=== PATIENT | male | born 1955 | race Caucasian/White ===

== ENCOUNTER 2019-07-26 01:18 | Inpatient (IN) | payer OTHER ==
[2019-07-26] MEDS ORDERED: Ondansetron 4 MG/2 ML SDV IVPUSH ONE (03:17)
[2019-07-26] MEDS ORDERED: HYDROmorphone 1 MG/ML Syringe IVPUSH ONE ×2 (03:17→05:48)
--- NOTE | 2019-07-26 03:22 | EDM.PDOC ---
ED HPI GENERAL MEDICAL PROBLEM - General Chief Complaint: Abdominal Pain Stated Complaint: STOMACH PAIN VOMITING Time Seen by Provider: 07/26/19 02:35 Source of Information: Reports: Patient, Family () History Limitations: Reports: No Limitations - History of Present Illness INITIAL COMMENTS - FREE TEXT/NARRATIVE: Mr. Carranza is a pleasant 63-year-old man with no chronic medical problems, but who acknowledges that he has not had a general physical exam for decades, states that he has been suffering from epigastric abdominal pain, sharp in character, on off for the past month. His tells me that he has vomited daily. Typically, when he has the pain, it only lasts for a few moments, and is only once per day, however, fouzia's episode began around 21:00, is much more severe, and has persisted. It is made worse with movement. He feels constipated , and states that his last bowel movement was on 07/24/19. He reports a 30 pound unintentional weight loss over the past 2 months. No recent fever, chills, cough, dyspnea, chest pain, palpitations, diarrhea, bloody bowel movements or black bowel movements, joint aches, headaches, or rashes. The patient states that he was seen at the walk-in clinic about 2 weeks ago. He states that no tests were done, but they felt that he was suffering from GERD, therefore recommended an [id number] antacid, whose name he does not recall. The patient states that he took the antacid, but he may not have been entirely compliant with it. He was then seen a second time in the walk-in clinic this past 07/23/19. He states that again no tests were done, and that he was again told that he likely had GERD, and a different antacid was recommended. He states that he took a single dose of it yesterday morning, , 07/25/19. The patient last ate around 18:00 last evening. The patient does not have a PCP, although he is planning to establish Dr. Emiliano Smith as a PCP. He has not received an influenza vaccine this season, and declined an offer to receive one here today. Abdomen Pain Score (Numeric/FACES): 10 - Related Data Allergies Allergy/AdvReac Type Severity Reaction Status Date / Time No Known Allergies Allergy Verified 07/26/19 01:38 Home Meds: Home Meds . [No Known Home Meds] 07/26/19 [History] Past Medical History - Past Surgical History GI Surgical History: Reports: Hernia, Inguinal (bilateral) Social & Family History - Tobacco Use Smoking Status *Q: Current Every Day Smoker Years of Tobacco use: 47 Packs/Tins Daily: 0.5 Packs/Tins Daily Comment: Down from 1 ppd - Caffeine Use Caffeine Use: Reports: Soda - Alcohol Use Alcohol Use History: No - Recreational Drug Use Recreational Drug Use: No - Living Situation & Occupation Living situation: Reports: , with Spouse Occupation: Employed ([employer]) ED ROS GENERAL - Review of Systems Review Of Systems: Comprehensive ROS is negative, except as noted in HPI. ED EXAM, GI/ABD - Physical Exam Exam: See Below Exam Limited By: No Limitations General Appearance: Alert, WD/WN, Moderate Distress (moaning in pain) Eyes: Bilateral: Normal Appearance, EOMI Ears: Normal External Exam, Hearing Grossly Normal Nose: Normal Inspection Throat/Mouth: Normal Inspection, Normal Lips, Normal Voice, No Airway Compromise Head: Atraumatic, Normocephalic Neck: Normal Inspection, Full Range of Motion Respiratory/Chest: No Respiratory Distress, Lungs Clear, Normal Breath Sounds, No Accessory Muscle Use Cardiovascular: Normal Peripheral Pulses, No Edema, No Gallop, No JVD, No Murmur , No Rub, Tachycardia (regular) GI/Abdominal Exam: No Distention, No Abnormal Bruit, No Mass, Rigid, Tender ( entire upper abdomen, but nontender to the lower abdomen), Abnormal Bowel Sounds (diminished) (Male) Exam: Deferred Rectal (Males) Exam: Deferred Back Exam: Normal Inspection, Full Range of Motion. No: CVA Tenderness (L), CVA Tenderness (R) Extremities: Normal Inspection, Normal Range of Motion, No Pedal Edema, Normal Capillary Refill Neurological: Alert, Oriented, Normal Cognition, No Motor/Sensory Deficits Psychiatric: Normal Affect Skin Exam: Warm, Dry, Intact, Normal Color, No Rash EKG INTERPRETATION EKG Date: 07/26/19 Time: 04:39 Rhythm: NSR Rate (Beats/Min): 64 [place]: Normal P-Wave: Present QRS: RBBB (Early transition) ST-T: Normal QT: Prolonged (QTc 517 ms) Comparison: NA - No Prior EKG Course - Vital Signs Last Recorded V/S: Last Vital Signs Temp 36.4 C 07/26/19 01:35 Pulse 58 L 07/26/19 01:35 Resp 24 H 07/26/19 01:35 BP 137/109 H 07/26/19 01:35 Pulse Ox 94 L 07/26/19 01:35 - Orders/Labs/Meds Orders: Active Orders 24 hr Category Date Time Status EKG Documentation Completion [RC] STAT Care 07/26/19 04:31 Active Abdomen 1V Upright [CR] Stat Exams 07/26/19 03:17 Taken Pantoprazole [ProTONIX IV] 80 mg Med 07/26/19 04:45 Active Sodium Chloride 0.9% [Normal Saline] 100 ml IV Q10H Sodium Chloride 0.9% [Normal Saline] 1,000 ml Med 07/26/19 03:30 Active IV ASDIRECTED Medication Orders Sodium Chloride (Normal Saline) 1,000 mls @ 150 mls/hr IV ASDIRECTED [facility]AN Last Admin: 07/26/19 03:27 Dose: 150 mls/hr Pantoprazole Sodium 80 mg/ (Sodium Chloride) 100 mls @ 8 mls/hr IV Q10H [facility] Labs: Laboratory Tests 07/26/19 07/26/19 Range/Units 02:19 02:19 WBC 9.45 H (4.23-9.07) K/mm3 RBC 5.31 (4.63-6.08) M/mm3 Hgb 16.7 (13.7-17.5) gm/dl Hct 47.9 (40.1-51.0) % MCV 90.2 (79.0-92.2) fl MCH 31.5 (25.7-32.2) pg MCHC 34.9 (32.2-35.5) g/dl RDW Std Deviation 41.4 (35.1-43.9) fL Plt Count 297 (163-337) K/mm3 MPV 9.3 L (9.4-12.3) fl Neutrophils % (Manual) 69 H (40-60) % Band Neutrophils % 0 (0-10) % Lymphocytes % (Manual) 26 (20-40) % Atypical Lymphs % 0 % Monocytes % (Manual) 3 (2-10) % Eosinophils % (Manual) 1 (0.8-7.0) % Basophils % (Manual) 1 (0.2-1.2) Platelet Estimate Adequate RBC Morph Comment Normal Sodium 137 (136-145) mEq/L Potassium 3.2 L (3.5-5.1) mEq/L Chloride 99 (98-107) mEq/L Carbon Dioxide 29 (21-32) mEq/L Anion Gap 12.2 (5-15) BUN 12 (7-18) mg/dL Creatinine 1.0 (0.7-1.3) mg/dL Est Cr Clr Drug Dosing 73.65 mL/min Estimated GFR (MDRD) > 60 (>60) mL/min BUN/Creatinine Ratio 12.0 L (14-18) Glucose 204 H (80-115) mg/dL Calcium 9.6 (8.5-10.1) mg/dL Magnesium 4.0 H (1.8-2.4) mg/dl Total Bilirubin 0.9 (0.2-1.0) mg/dL AST 19 (15-37) U/L ALT 21 (16-63) U/L Alkaline Phosphatase 80 (46-116) U/L Total Protein 7.0 (6.4-8.2) g/dl Albumin 3.6 (3.4-5.0) g/dl Globulin 3.4 gm/dL Albumin/Globulin Ratio 1.1 (1-2) Lipase 111 (73-393) U/L Meds: Medications Generic Name Dose Route Start Last Admin Trade Name Freq PRN Reason Stop Dose Admin Sodium Chloride 1,000 mls @ 150 mls/hr 07/26/19 03:30 07/26/19 03:27 Normal Saline IV 150 mls/hr ASDIRECTED [facility]AN Administration Pantoprazole Sodium 80 mg/ 100 mls @ 8 mls/hr 07/26/19 04:45 Sodium Chloride IV Q10H [facility] Discontinued Medications Generic Name Dose Route Start Last Admin Trade Name Freq PRN Reason Stop Dose Admin Hydromorphone HCl 1 mg 07/26/19 03:17 07/26/19 03:25 Dilaudid IVPUSH 07/26/19 03:18 1 mg ONETIME ONE Administration Ondansetron HCl 4 mg 07/26/19 03:17 07/26/19 03:26 Zofran IVPUSH 02/07/20 03:18 4 mg ONETIME ONE Administration Pantoprazole Sodium 40 mg 07/26/19 04:31 Protonix Iv IVPUSH 07/26/19 04:32 ONETIME ONE - Re-Assessments/Exams Free Text/Narrative Re-Assessment/Exam: 07/26/19 03:18 The patient's presentation is very concerning for a perforated gastric ulcer versus pancreatitis; he reports one month of intermittent epigastric pain, much worse tonight, and on examination, he has peritoneal signs including diminished bowel sounds, rigidity, and upper abdominal tenderness. I have ordered a KUB to evaluate for free air; if there is free air, the patient will need to go directly to the OR. If there is not, I will order a CT scan of his abdomen and pelvis with oral and IV contrast. In the meantime, blood work has been ordered, along with IV fluid, Dilaudid, and Zofran. 07/26/19 04:26 The patient's KUB demonstrates free air. Otherwise nonspecific bowel gas pattern. Formal read per the Radiologist pending. His CBC is remarkable for a WBC count elevated at 9.45, but with 0% bandemia. His CMP is remarkable for a potassium depressed at 3.2, and a blood glucose elevated at 204, with remainder of CMP being unremarkable. His magnesium level is elevated at 4.0. His lipase is within normal limits at 111. 07/26/19 04:[address] Payan at 04:27. He recommended that I start IV Protonix, and obtain an ECG. No and about except this time. He will come in immediately. 07/26/19 04:43 Dr. Payan is here, and is evaluating the patient. 07/26/19 04:51 Dr. Payan is going to take the patient to the OR. Departure - Departure Time of Disposition: 04:52 Disposition: DC/Tfer to [facility] Condition: Fair Clinical Impression: Perforated abdominal viscus, Hyperglycemia - Discharge Information *PRESCRIPTION DRUG MONITORING PROGRAM REVIEWED*: Not Applicable *COPY OF PRESCRIPTION DRUG MONITORING REPORT IN PATIENT ELI: Not Applicable Referrals: Emiliano Smith MD [Primary Care Provider] - Alvino Payan MD [Physician] - Forms: ED Department Discharge Sepsis Event Note - Evaluation Sepsis Screening Result: No Definite Risk - Focused Exam Vital Signs: Vital Signs Temp Pulse Resp BP Pulse Ox 07/26/19 01:35 36.4 C 58 L 24 H 137/109 H 94 L Date Exam was Performed: 07/26/19 Time Exam was Performed: 04:46 - My Orders Last 24 Hours: My Active Orders 07/26/19 03:17 Abdomen 1V Upright [CR] Stat 07/26/19 03:30 Sodium Chloride 0.9% [Normal Saline] 1,000 ml IV ASDIRECTED 07/26/19 04:31 EKG Documentation Completion [RC] STAT 07/26/19 04:45 Pantoprazole [ProTONIX IV] 80 mg Sodium Chloride 0.9% [Normal Saline] 100 ml IV Q10H - Assessment/Plan Last 24 Hours: My Active Orders 07/26/19 03:17 Abdomen 1V Upright [CR] Stat 07/26/19 03:30 Sodium Chloride 0.9% [Normal Saline] 1,000 ml IV ASDIRECTED 07/26/19 04:31 EKG Documentation Completion [RC] STAT 07/26/19 04:45 Pantoprazole [ProTONIX IV] 80 mg Sodium Chloride 0.9% [Normal Saline] 100 ml IV Q10H
[2019-07-26] MEDS ORDERED: Sodium Chloride 0.9% 1,000 ML IV SCH (03:30)
[2019-07-26] MEDS ORDERED: Pantoprazole 40 MG Vial IVPUSH ONE (04:31)
[2019-07-26] MEDS ORDERED: Pantoprazole 80 MG in Sodium Chloride 0.9% 100 ML IV SCH (04:45)
[2019-07-26] MEDS ORDERED: ceFAZolin 2 GM in Premix Bag 1 BAG IV ONE (05:22)
[2019-07-26] MEDS ORDERED: Bupivacaine 0.5%/EPINEPHrine 1:200,000 50 ML MDV ONE (05:29)
--- NOTE | 2019-07-26 05:29 | PCM.HP.2 ---
H&P History of Present Illness - General Date of Service: 07/26/19 Admit Problem/Dx: Admission Diagnosis/Problem Admission Diagnosis/Problem perforated viscus Source of Information: Patient History Limitations: Reports: No Limitations - History of Present Illness Onset of Symptoms: Reports: Gradual Duration of Symptoms: Reports: Week(s): Location: Reports: Abdomen Quality: Reports: Burning, Sharp, Stabbing Severity: Severe Improves with: Reports: None Associated Symptoms: Reports: Nausea/Vomiting Other HPI/Comments: Mr. Carranza is a 63 yo man who presents with worsening epigastric pain. The pain has been going on for over a month, but in the past 24 hours the pain acutely worsened and he has had associated nausea/vomiting. He had made an appointment to see a provider at [facility] later this month regarding this issue. On work-up in the ER today, a plain film of the abdomen shows pneumoperitoneum. The patient reports a history of duodenal ulcer in the distant past, but he takes no medications. He smokes about 1/2 ppd cigarettes. He denies alcohol abuse, and denies hematemesis. He has never had any abdominal operations. Abdomen Pain Score (Numeric/FACES): 10 - Related Data Allergies/Adverse Reactions: Allergies Allergy/AdvReac Type Severity Reaction Status Date / Time No Known Allergies Allergy Verified 07/26/19 01:38 Home Medications: Home Meds . [No Known Home Meds] 07/26/19 [History] Past Medical History - Past Surgical History GI Surgical History: Reports: Hernia, Inguinal (bilateral) Social & Family History - Tobacco Use Smoking Status *Q: Current Every Day Smoker Years of Tobacco use: 47 Packs/Tins Daily: 0.5 - Caffeine Use Caffeine Use: Reports: Soda - Recreational Drug Use Recreational Drug Use: No - Living Situation & Occupation Living situation: Reports: , with Spouse Occupation: Employed ([employer]) H&P Review of Systems - Review of Systems: Review Of Systems: See Below General: Reports: Malaise Pulmonary: Reports: No Symptoms Cardiovascular: Reports: No Symptoms Gastrointestinal: Reports: Abdominal Pain, Nausea, Vomiting Genitourinary: Reports: No Symptoms Musculoskeletal: Reports: No Symptoms Skin: Reports: No Symptoms Psychiatric: Reports: No Symptoms Neurological: Reports: No Symptoms Hematologic/Lymphatic: Reports: No Symptoms Immunologic: Reports: No Symptoms Exam - Exam Exam: See Below - Vital Signs Vital Signs: Last Vital Signs Temp 36.4 C 07/26/19 01:35 Pulse 58 L 07/26/19 01:35 Resp 24 H 07/26/19 01:35 BP 137/109 H 07/26/19 01:35 Pulse Ox 94 L 07/26/19 01:35 Weight: 111.13 kg - Exam General: Alert, Oriented, Cooperative, Mild Distress HEENT: Conjunctiva Clear Neck: Supple, Other (no soft tissue crepitus) Lungs: Clear to Auscultation Cardiovascular: Regular Rate, Other (palpable pedal pulses) GI/Abdominal Exam: Guarding, Rigid, Rebound, Tender (Male) Exam: Deferred Rectal (Males) Exam: Deferred Extremities: Normal Inspection Skin: Warm, Dry Neuro Extensive - Mental Status: Alert, Oriented x3 Psychiatric: Normal Mood - Patient Data Lab Results Last 24 hrs: Laboratory Results - last 24 hr 07/26/19 07/26/19 Range/Units 02:19 02:19 WBC 9.45 H (4.23-9.07) K/mm3 RBC 5.31 (4.63-6.08) M/mm3 Hgb 16.7 (13.7-17.5) gm/dl Hct 47.9 (40.1-51.0) % MCV 90.2 (79.0-92.2) fl MCH 31.5 (25.7-32.2) pg MCHC 34.9 (32.2-35.5) g/dl RDW Std Deviation 41.4 (35.1-43.9) fL Plt Count 297 (163-337) K/mm3 MPV 9.3 L (9.4-12.3) fl Neutrophils % (Manual) 69 H (40-60) % Band Neutrophils % 0 (0-10) % Lymphocytes % (Manual) 26 (20-40) % Atypical Lymphs % 0 % Monocytes % (Manual) 3 (2-10) % Eosinophils % (Manual) 1 (0.8-7.0) % Basophils % (Manual) 1 (0.2-1.2) Platelet Estimate Adequate RBC Morph Comment Normal Sodium 137 (136-145) mEq/L Potassium 3.2 L (3.5-5.1) mEq/L Chloride 99 (98-107) mEq/L Carbon Dioxide 29 (21-32) mEq/L Anion Gap 12.2 (5-15) BUN 12 (7-18) mg/dL Creatinine 1.0 (0.7-1.3) mg/dL Est Cr Clr Drug Dosing 73.65 mL/min Estimated GFR (MDRD) > 60 (>60) mL/min BUN/Creatinine Ratio 12.0 L (14-18) Glucose 204 H (80-115) mg/dL Calcium 9.6 (8.5-10.1) mg/dL Magnesium 4.0 H (1.8-2.4) mg/dl Total Bilirubin 0.9 (0.2-1.0) mg/dL AST 19 (15-37) U/L ALT 21 (16-63) U/L Alkaline Phosphatase 80 (46-116) U/L Total Protein 7.0 (6.4-8.2) g/dl Albumin 3.6 (3.4-5.0) g/dl Globulin 3.4 gm/dL Albumin/Globulin Ratio 1.1 (1-2) Lipase 111 (73-393) U/L Result Diagrams: 07/26/19 02:19 07/26/19 02:19 Sepsis Event Note - Evaluation Sepsis Screening Result: No Definite Risk - Focused Exam Vital Signs: Vital Signs Temp Pulse Resp BP Pulse Ox 07/26/19 01:35 36.4 C 58 L 24 H 137/109 H 94 L Date Exam was Performed: 07/26/19 Time Exam was Performed: 05:23 *Q Meaningful Use (ADM) - VTE Risk Assess *Q Each Risk Factor Represents 2 Points: Age 60 - 74 Years, Major surgery greater than 45 minutes Total Score 2 Point Risk Factors: 4 Problem List Initiated/Reviewed/Updated: Yes Orders Last 24hrs: Active Orders 24 hr Category Date Time Status Patient Status [ADT] Routine ADT 07/26/19 04:56 Active EKG Documentation Completion [RC] STAT Care 07/26/19 04:31 Active Abdomen 1V Upright [CR] Stat Exams 07/26/19 03:17 Taken Pantoprazole [ProTONIX IV] 80 mg Med 07/26/19 04:45 Active Sodium Chloride 0.9% [Normal Saline] 100 ml IV Q10H Sodium Chloride 0.9% [Normal Saline] 1,000 ml Med 07/26/19 03:30 Active IV ASDIRECTED ceFAZolin [Ancef] 2 gm Med 07/26/19 05:22 Ordered Premix Bag 1 bag IV ONETIME Schedule Procedure [COMM] Stat Oth 07/26/19 04:58 Ordered Medication Orders Sodium Chloride (Normal Saline) 1,000 mls @ 150 mls/hr IV ASDIRECTED [facility] Last Admin: 07/26/19 03:27 Dose: 150 mls/hr Pantoprazole Sodium 80 mg/ (Sodium Chloride) 100 mls @ 8 mls/hr IV Q10H [facility] Last Admin: 07/26/19 04:49 Dose: 8 mls/hr Cefazolin Sodium/Dextrose 2 gm (/ Premix) 50 mls @ 100 mls/hr IV ONETIME ONE Stop: 07/26/19 05:51 Assessment/Plan Comment:: Perforated viscus, likely gastric or duodenal ulcer. The patient is hemodynamically stable but with signs of evolving peritonitis. Plan for laparoscopic exploration and repair of perforated ulcer with biopsy. Discussed potential need for laparotomy, resection, anastomosis, placement of drains and or feeding tubes. I discussed risks including bleeding, infection, anastomotic leak, need for further surgery, and patient and family expressed understanding prior to signing consent for surgery. Will plan for empiric treatment of H pylori post-op. Continue IV protonix 40 mg bid, NPO, OR today. - Mortality Measure Prognosis:: Good
[2019-07-26] MEDS ORDERED: Lidocaine 1% 4 ML ONE (05:42)
[2019-07-26] MEDS ORDERED: Propofol 200 MG/20 ML SDV ONE (05:42)
[2019-07-26] MEDS ORDERED: fentaNYL 250 MCG/5 ML SDV ONE (05:42)
[2019-07-26] MEDS ORDERED: Ondansetron 4 MG/2 ML SDV ONE (05:42)
[2019-07-26] MEDS ORDERED: Midazolam 1 MG/ML 2 ML SDV ONE (05:42)
[2019-07-26] MEDS ORDERED: Rocuronium 50 MG/5 ML Vial ONE ×2 (05:42→08:06)
--- NOTE | 2019-07-26 05:58 | PCM.PREANE ---
Preanesthetic Assessment - Anesthesia/Transfusion/Family Hx Anesthesia History: Prior Anesthesia Without Reaction Family History of Anesthesia Reaction: No Transfusion History: No Prior Transfusion(s) - Review of Systems General: Fatigue, Malaise Pulmonary: No Symptoms Cardiovascular: No Symptoms Gastrointestinal: Abdominal Pain, Constipation Neurological: No Symptoms Other: Reports: None - Physical Assessment NPO Status Date: 07/25/19 NPO Status Time: 18:00 Vital Signs: Last Vital Signs Temp 36.4 C 07/26/19 01:35 Pulse 58 L 07/26/19 01:35 Resp 24 H 07/26/19 01:35 BP 137/109 H 07/26/19 01:35 Pulse Ox 94 L 07/26/19 01:35 Height: 1.75 m Weight: 111.13 kg ASA Class: 2E Mental Status: Alert & Oriented x3 Airway Class: Mallampati = 2 Dentition: Reports: Dentures Thyro-Mental Finger Breadths: 3 Mouth Opening Finger Breadths: 3 ROM/Head Extension: Full Lungs: Clear to Auscultation, Decreased Breath Sounds Cardiovascular: Regular Rate, Regular Rhythm - Lab Values: Laboratory Last Values WBC 9.45 K/mm3 (4.23-9.07) H 07/26/19 02:19 RBC 5.31 M/mm3 (4.63-6.08) 07/26/19 02:19 Hgb 16.7 gm/dl (13.7-17.5) 07/26/19 02:19 Hct 47.9 % (40.1-51.0) 07/26/19 02:19 MCV 90.2 fl (79.0-92.2) 07/26/19 02:19 MCH 31.5 pg (25.7-32.2) 07/26/19 02:19 MCHC 34.9 g/dl (32.2-35.5) 07/26/19 02:19 RDW Std Deviation 41.4 fL (35.1-43.9) 07/26/19 02:19 Plt Count 297 K/mm3 (163-337) 07/26/19 02:19 MPV 9.3 fl (9.4-12.3) L 07/26/19 02:19 Neutrophils % (Manual) 69 % (40-60) H 07/26/19 02:19 Band Neutrophils % 0 % (0-10) 07/26/19 02:19 Lymphocytes % (Manual) 26 % (20-40) 07/26/19 02:19 Atypical Lymphs % 0 % 07/26/19 02:19 Monocytes % (Manual) 3 % (2-10) 07/26/19 02:19 Eosinophils % (Manual) 1 % (0.8-7.0) 07/26/19 02:19 Basophils % (Manual) 1 (0.2-1.2) 07/26/19 02:19 Platelet Estimate Adequate 07/26/19 02:19 RBC Morph Comment Normal 07/26/19 02:19 Sodium 137 mEq/L (136-145) 07/26/19 02:19 Potassium 3.2 mEq/L (3.5-5.1) L 07/26/19 02:19 Chloride 99 mEq/L (98-107) 07/26/19 02:19 Carbon Dioxide 29 mEq/L (21-32) 07/26/19 02:19 Anion Gap 12.2 (5-15) 07/26/19 02:19 BUN 12 mg/dL (7-18) 07/26/19 02:19 Creatinine 1.0 mg/dL (0.7-1.3) 07/26/19 02:19 Est Cr Clr Drug Dosing 73.65 mL/min 07/26/19 02:19 Estimated GFR (MDRD) > 60 mL/min (>60) 07/26/19 02:19 BUN/Creatinine Ratio 12.0 (14-18) L 07/26/19 02:19 Glucose 204 mg/dL (80-115) H 07/26/19 02:19 Calcium 9.6 mg/dL (8.5-10.1) 07/26/19 02:19 Magnesium 4.0 mg/dl (1.8-2.4) H 07/26/19 02:19 Total Bilirubin 0.9 mg/dL (0.2-1.0) 07/26/19 02:19 AST 19 U/L (15-37) 07/26/19 02:19 ALT 21 U/L (16-63) 07/26/19 02:19 Alkaline Phosphatase 80 U/L (46-116) 07/26/19 02:19 Total Protein 7.0 g/dl (6.4-8.2) 07/26/19 02:19 Albumin 3.6 g/dl (3.4-5.0) 07/26/19 02:19 Globulin 3.4 gm/dL 07/26/19 02:19 Albumin/Globulin Ratio 1.1 (1-2) 07/26/19 02:19 Lipase 111 U/L (73-393) 07/26/19 02:19 - Imaging/EKG Impressions: EKG NSR RBBB rate 64 - Allergies Allergies/Adverse Reactions: Allergies Allergy/AdvReac Type Severity Reaction Status Date / Time No Known Allergies Allergy Verified 07/26/19 01:38 - Anesthesia Plan Pre-Op Medication Ordered: None - Acknowledgements Anesthesia Type Planned: General Anesthesia Pt an Appropriate Candidate for the Planned Anesthesia: Yes Alternatives and Risks of Anesthesia Discussed w Pt/Guardian: Yes Pt/Guardian Understands and Agrees with Anesthesia Plan: Yes PreAnesthesia Questionnaire Gastrointestinal History: Reports: GERD - Past Surgical History GI Surgical History: Reports: Hernia, Inguinal (bilateral) - SUBSTANCE USE Smoking Status *Q: Current Every Day Smoker Tobacco Use Within Last Twelve Months: Cigarettes Second Hand Smoke Exposure: Yes Days Per Week of Alcohol Use: 0 Number of Drinks Per Day: 0 Total Drinks Per Week: 0 Recreational Drug Use History: No - HOME MEDS Home Medications: Home Meds . [No Known Home Meds] 07/26/19 [History] - CURRENT (IN HOUSE) MEDS Current Meds: Current Medications Sodium Chloride (Normal Saline) 1,000 mls @ 150 mls/hr IV ASDIRECTED [facility] Last Admin: 07/26/19 03:27 Dose: 150 mls/hr Pantoprazole Sodium 80 mg/ (Sodium Chloride) 100 mls @ 8 mls/hr IV Q10H [facility] Last Admin: 07/26/19 04:49 Dose: 8 mls/hr Cefazolin Sodium/Dextrose 2 gm (/ Premix) 50 mls @ 100 mls/hr IV ONETIME ONE Stop: 07/26/19 05:51 Discontinued Medications Bupivacaine HCl/Epinephrine Bitart (Marcaine 0.5%/Epinephrine 1:200,000) Confirm Administered Dose 50 ml .ROUTE .STK-MED ONE Stop: 07/26/19 05:30 Fentanyl (Sublimaze) Confirm Administered Dose 250 mcg .ROUTE .STK-MED ONE Stop: 07/26/19 05:43 Hydromorphone HCl (Dilaudid) 1 mg IVPUSH ONETIME ONE Stop: 07/26/19 03:18 Last Admin: 07/26/19 03:25 Dose: 1 mg Hydromorphone HCl (Dilaudid) 1 mg IVPUSH ONETIME ONE Stop: 07/26/19 05:49 Lidocaine HCl (Xylocaine-Mpf 1%) Confirm Administered Dose 4 mls @ as directed .ROUTE .STK-MED ONE Stop: 07/26/19 05:43 Midazolam HCl (Versed 1 Mg/Ml) Confirm Administered Dose 2 mg .ROUTE .STK-MED ONE Stop: 07/26/19 05:43 Ondansetron HCl (Zofran) 4 mg IVPUSH ONETIME ONE Stop: 07/26/19 03:18 Last Admin: 07/26/19 03:26 Dose: 4 mg Ondansetron HCl (Zofran) Confirm Administered Dose 4 mg .ROUTE .STK-MED ONE Stop: 07/26/19 05:43 Pantoprazole Sodium (Protonix Iv) 40 mg IVPUSH ONETIME ONE Stop: 07/26/19 04:32 Last Admin: 07/26/19 04:49 Dose: 40 mg Propofol (Diprivan 20 Ml) Confirm Administered Dose 200 mg .ROUTE .STK-MED ONE Stop: 07/26/19 05:43 Rocuronium [place] (Zemuron) Confirm Administered Dose 50 mg .ROUTE .STK-MED ONE Stop: 07/26/19 05:43
[2019-07-26] MEDS ORDERED: Lactated Ringers 1,000 ML ONE ×5 (06:14→09:42)
[2019-07-26] MEDS ORDERED: Succinylcholine/Normal Saline 100 MG/5 ML Syringe ONE (06:14)
[2019-07-26] MEDS ORDERED: ePHEDrine/Normal Saline 25 MG/5 ML Syringe ONE (06:29)
[2019-07-26] MEDS ORDERED: ceFAZolin 1 GM Vial ONE (06:42)
[2019-07-26] MEDS ORDERED: Phenylephrine/Normal Saline 100 MCG/ML 10 ML Syringe ONE (06:45)
[2019-07-26] MEDS ORDERED: HYDROmorphone 0.5 MG/0.5 ML Syringe ONE ×2 (07:30→08:28)
[2019-07-26] MEDS ORDERED: HYDROmorphone 0.5 MG/0.5 ML Syringe IVPUSH PRN (07:39)
[2019-07-26] MEDS ORDERED: fentaNYL 100 MCG/2 ML SDV IVPUSH PRN (07:39)
[2019-07-26] MEDS ORDERED: Ondansetron 4 MG/2 ML SDV IVPUSH PRN (07:39)
[2019-07-26] MEDS ORDERED: Ketamine 500 mg/10 ML MDV ONE (08:19)
--- NOTE | 2019-07-26 08:33 | CR ---
Abdomen: Upright view of the abdomen was obtained. Comparison: No prior abdominal study is available. Air is noted beneath both hemidiaphragms. Findings are suspicious for free air. Scattered air-fluid levels are noted within portions of small bowel. No significant bowel dilatation is seen. Bony structures which are within normal limits for the patient's age. Impression: 1. Probable free air. 2. Air-fluid levels within small bowel without significant bowel dilatation. Diagnostic code #3 This report was dictated in [place] Standard Time
[2019-07-26] MEDS ORDERED: Neostigmine Methylsulfate 1 MG/ML 5 ML Syringe ONE (09:28)
[2019-07-26] MEDS ORDERED: oxyCODONE 5 MG Tab PO PRN ×2 (09:43→09:46)
[2019-07-26] MEDS ORDERED: Lactated Ringers 1,000 ML IV SCH (09:45)
[2019-07-26] MEDS ORDERED: Pantoprazole 40 MG Vial IV SCH (10:00)
[2019-07-26] MEDS ORDERED: Pantoprazole 40 MG in Sodium Chloride 0.9% 100 ML IV SCH (10:00)
[2019-07-26] MEDS ORDERED: metroNIDAZOLE/Normal Saline 500 MG in Premix Bag 1 BAG IV SCH (10:00)
[2019-07-26] MEDS ORDERED: Heparin Sodium 5,000 Units/ML Vial SUBCUT SCH (10:00)
[2019-07-26] MEDS ORDERED: Acetaminophen 325 MG Tab PO SCH ×2 (10:00)
--- NOTE | 2019-07-26 10:05 | PCM.POSTAN ---
POST ANESTHESIA ASSESSMENT - MENTAL STATUS Mental Status: Somnolent - VITAL SIGNS Vital Signs: Last Vital Signs Temp 97.5 F 07/26/19 01:35 Pulse 58 L 07/26/19 01:35 Resp 24 H 07/26/19 01:35 BP 137/109 H 07/26/19 01:35 Pulse Ox 94 L 07/26/19 01:35 81 9 98.2 138/85 94% - RESPIRATORY Respiratory Status: Respiratory Rate WNL, Airway Patent, O2 Saturation Stable, Supplemental Oxygen - CARDIOVASCULAR CV Status: Pulse Rate WNL, Blood Pressure Stable - GASTROINTESTINAL GI Status: No Symptoms - PAIN Pain Score: 0 (sleeping) - POST OP HYDRATION Hydration Status: Adequate & Stable
--- NOTE | 2019-07-26 10:16 | PCM.PRNOTE ---
- Free Text/Narrative Note: Date: 07/26/2019 Operation: Laparoscopy, with conversion to laparotomy and antrectomy with gastrojejunostomy Surgeon: Alvino Payan MD Findings: Large perforated ulcer at lesser curve just proximal to the pylorus. There was gross contamination throughout the abdomen with gastric juices, and gastric tissue at the site of the ulcer was too friable to hold suture. Laparotomy was then performed for antrectomy and gastrojejunostomy. Detailed Report: The patient was taken to the operating room emergently for pneumoperitoneum and presumed perforated gastroduodenal ulcer. He was placed supine on the table, and underwent general endotracheal anesthesia. The abdomen was prepped and draped in usual sterile fashion. Timeout was performed. A Veress needle was inserted in the left upper quadrant at Potts's point, and the abdomen was insufflated to 15 mmHg. A 5 mm incision was made superior to the umbilicus, and air was aspirated from the abdomen at this point, ensuring safe placement for a 5 mm bladed port. This port was placed, and the 5 mm 30 degree laparoscope was inserted into the abdomen. There was evidence of gross diffuse inflammation, and several 100 mL of gastric fluid throughout the abdomen. All the fluid was suctioned. Additional ports were placed at the right mid abdomen , and left upper quadrant. The omentum was bluntly dissected from the anterior portion of the antrum and proximal duodenum. A site of perforation was clearly evident. Attempts were made to laparoscopically suture the perforation primarily. The tissue was too friable to hold suture, and 2 attempts were made with both stitches ripping out through the tissue. The decision was then made to perform laparotomy. A midline incision inferior to the xiphoid to just superior to the umbilicus was made. The Bookwalter was placed to aid with retraction and exposure. An additional attempt with silk suture was made to repair the perforation primarily, but again the tissue was too friable. At this point the decision was made to perform an antrectomy. The omentum was dissected off the greater curvature the stomach, permitting access to the lesser sac. Posterior attachments of the stomach to the retroperitoneum were carefully dissected, and the pars flaccida was dissected off the lesser curve, and the mid stomach was able to be completely encircled. Dissection was then performed at the level of the pylorus and proximal duodenum. Careful circumferential dissection proceeded, and the first portion of the duodenum was able to be encircled just distal to the pylorus. A 100 mm linear cutting stapler with a green load was used to divide the stomach at a site of healthy tissue at the mid body. The duodenum was divided at a point just distal to the pylorus using a TA 60 mm black load stapler. The specimen was removed and sent for pathology. The duodenal stump staple line was oversewn with a few silk sutures. The small bowel was then inspected, and the ligament of Treitz identified. A point of jejunum approximately 40 cm distal to the ligament of Treitz was brought up towards the stomach and oriented for anastomosis in isoperistaltic orientation. A small gastrotomy was made at the distal portion of the remnant stomach near the greater curvature, and small enterotomy made at the antimesenteric side of the small bowel that had been selected for anastomosis. The 100 mm linear cutting stapler with a green load was then used to make a [id number] anastomosis, antecolic. The remaining enterotomy was closed by and with interrupted Vicryl suture, with a few Lembert stitches placed to imbricate the closure. A leaf of omentum was tucked around the anastomosis. The supraumbilical laparoscopic port site was closed at the level of fascia with 0 Vicryl. All other laparoscopic sites were closed only at the level of the skin with skin roly. The midline incision was closed at the level of fascia with running 0 PDS suture. Skin was closed with skin roly. The patient tolerated the operation well, was extubated in the operating room and transferred to the recovery unit for postanesthesia care. Alvino Payan MD General Surgery
--- NOTE | 2019-07-26 11:06 | CR ---
Chest: Portable supine view of the chest was obtained. Comparison: No previous chest x-ray. Nasogastric tube is seen. Tip lies within the stomach. Skin roly are present within the abdomen. Lungs show no acute parenchymal change. Impression: 1. Tip of nasogastric tube within the stomach. 2. Other incidental findings. Diagnostic code #2 This report was dictated in [place] Standard Time
[2019-07-26] MEDS ORDERED: Albuterol 0.083% 2.5 MG/3 ML Neb Soln NEB ONE (11:15)
[2019-07-26] MEDS ORDERED: Pneumococcal Polyvalent-23 Vaccine 0.5 ML SDV IM ONE (12:23)
[2019-07-26] MEDS: Lactated Ringers 1,000 ML IV SCH ×2 (14:17→21:46)
[2019-07-26] MEDS: metroNIDAZOLE/Normal Saline 500 MG in Premix Bag 1 BAG IV SCH ×2 (14:18→21:35)
[2019-07-26] MEDS: Heparin Sodium 5,000 Units/ML Vial SUBCUT SCH ×2 (14:19→21:35)
[2019-07-26] MEDS: Pantoprazole 40 MG Vial IV SCH (17:33)
[2019-07-26] MEDS: Morphine 2 MG/ML SYRINGE IVPUSH PRN (19:57)
--- NOTE | 2019-07-27 01:03 | PCM48HPAN ---
Post Anesthesia Note - EVALUATION WITHIN 48HRS OF ANESTHETIC Vital Signs in Normal Range: Yes Patient Participated in Evaluation: No (asleep- visited with nurse- head of bed up) Respiratory Function Stable: Yes Airway Patent: Yes Cardiovascular Function Stable: Yes Hydration Status Stable: Yes Pain Control Satisfactory: Yes Nausea and Vomiting Control Satisfactory: Yes Mental Status Recovered: Yes Vital Signs: Last Vital Signs Temp 98.4 F 07/27/19 00:00 Pulse 87 07/27/19 00:00 Resp 18 07/27/19 00:00 BP 134/77 07/27/19 00:00 Pulse Ox 94 L 07/27/19 00:00
[2019-07-27] MEDS: Lactated Ringers 1,000 ML IV SCH (04:52)
[2019-07-27] MEDS: Pantoprazole 40 MG Vial IV SCH ×2 (04:53→16:39)
[2019-07-27] MEDS: Heparin Sodium 5,000 Units/ML Vial SUBCUT SCH ×3 (04:59→21:02)
[2019-07-27] MEDS: metroNIDAZOLE/Normal Saline 500 MG in Premix Bag 1 BAG IV SCH ×3 (04:59→21:01)
[2019-07-27] MEDS: Morphine 2 MG/ML SYRINGE IVPUSH PRN ×2 (08:00→11:58)
[2019-07-27] MEDS ORDERED: Furosemide 20 MG/2 ML VIAL IVPUSH ONE (08:10)
[2019-07-27] MEDS ORDERED: D5 1/2 NS w/ 20 mEq/L KCl 1,000 ML IV SCH (08:15)
[2019-07-27] MEDS ORDERED: Diatrizoate Meglumine/Diatrizoate Sodium 37% 120 ML Bottle PO ONE (12:25)
[2019-07-27] MEDS ORDERED: Albuterol 0.083% 2.5 MG/3 ML Neb Soln NEB ONE (15:08)
[2019-07-27] MEDS ORDERED: Metoprolol Tartrate 5 MG/5 ML SDV IVPUSH ONE ×2 (15:20)
[2019-07-27] MEDS ORDERED: Metoclopramide 10 MG/2 ML SDV IVPUSH ONE (15:20)
[2019-07-27] MEDS: Metoprolol Tartrate 5 MG/5 ML SDV ONE ×2 (15:24→17:17)
--- NOTE | 2019-07-27 15:55 | PCM.SN ---
- Free Text/Narrative Note: Progress Note POD 1 s/p antrectomy and Billroth 2 reconstruction for giant perforated gastric ulcer. S: pain improved, no complaints. O: Tachyarrhythmia currently, hemodynamically stable. UGI study today shows no evidence of obstruction or anastomotic leak. Sleepy, arousable, no complaints Palpable irregularly irregular pulse, tachycardic Coarse, diminished breath sounds Abd soft, minimally tender, incision sites clean, dry, intact A: Tachyarrhythmia post-op. IV B-blank brought rate from 180 to about 150 bpm. Asymptomatic. Seems fluid overloaded. Hypoxic, now on non-rebreather mask. CXR shows shallow lung volumes without evidence of aspiration No abdominal pain P: -morphine prn pain -Albuterol breathing treatment, pulmonary toilet -IV fluids were reduced to 75 from 125 ml/hr this morning, and 20 mg IV lasix administered with good response. -recheck labs including CBC, BMP, Mg, troponin, and ABG given change in heart rhythm- may benefit from additional diuresis -amiodarone loading dose IV followed by infusion for rate control -NPO, NG tube LIWS -heparin 5000 u SC q8h for dvt ppx, SCD -empiric treatment for H pylori including protonix IV 40 mg bid, clarithromycin , metronidazole -ICU status
--- NOTE | 2019-07-27 15:55 | CR ---
Chest: Portable view of the chest was obtained. Comparison: Prior chest x-ray of 07/26/19. Mild atelectasis within the left lung base is seen. Lungs otherwise are clear. Nasogastric tube is seen with tip lying within the stomach. Heart size and mediastinum appear within normal limits for portable technique. Impression: 1. Slight left basilar atelectasis. 2. Tip of nasogastric tube within the stomach. 3. Nothing acute is otherwise seen on portable chest x-ray. Diagnostic code #2 This report was dictated in [place] Standard Time
[2019-07-27] MEDS ORDERED: Amiodarone In Dextrose,Iso-Osm 150 MG in Premix Bag 1 BAG IV ONE ×2 (16:00)
[2019-07-27] MEDS ORDERED: Diltiazem 50 MG/10 ML SDV IVPUSH ONE (20:00)
[2019-07-27] MEDS ORDERED: Diltiazem 50 MG/10 ML SDV IV ONE (20:25)
[2019-07-27] MEDS ORDERED: Diltiazem 125 MG in Sodium Chloride 0.9% 100 ML IV SCH (20:45)
[2019-07-27] MEDS ORDERED: Ibutilide 1 MG/10 ML Vial IVPUSH ONE ×2 (21:03→21:35)
[2019-07-27] MEDS ORDERED: Sodium Chloride 0.9% 50 ML ONE (21:44)
--- NOTE | 2019-07-27 22:04 | PCM.CONS ---
H&P History of Present Illness - General Date of Service: 07/27/19 Admit Problem/Dx: Admission Diagnosis/Problem Admission Diagnosis/Problem perforated viscus - History of Present Illness Initial Comments - Free Text/Narative: This is a 63 year old male with past medical history significant for daily smoking who was brought to the ED by for worsening epigastric pain. As per patient pain had been going on for approximately 1 months, acutely worsened 24 hours prior to consultation and associated with nausea and vomiting. Once in the ED patient was found to have imaging compatible with bowel perforation for which surgery was consulted and patient was taken to exploratory laparotomy. Finding during surgery included a large perforated ulcer in the stomach on the lesser curvature extending to the pylorus with obvious leakage of gastric contents into peritoneum. A gastrojejunostomy and antrectomy were performed on 07/26/19. Abdomen Pain Score (Numeric/FACES): 5 - Related Data Allergies/Adverse Reactions: Allergies Allergy/AdvReac Type Severity Reaction Status Date / Time No Known Allergies Allergy Verified 07/26/19 01:38 Home Medications: Home Meds . [No Known Home Meds] 07/26/19 [History] Past Medical History Gastrointestinal History: Reports: GERD - Past Surgical History GI Surgical History: Reports: Hernia, Inguinal Social & Family History - Tobacco Use Smoking Status *Q: Current Every Day Smoker Years of Tobacco use: 50 Packs/Tins Daily: 0.5 Second Hand Smoke Exposure: Yes - Caffeine Use Caffeine Use: Reports: Soda - Alcohol Use Days Per Week of Alcohol Use: 0 Number of Drinks Per Day: 0 Total Drinks Per Week: 0 - Recreational Drug Use Recreational Drug Use: No - Living Situation & Occupation Living situation: Reports: , with Spouse Occupation: Employed ([employer]) H&P Review of Systems - Review of Systems: Review Of Systems: See Below General: Reports: Fever, Chills, Malaise. Denies: Weakness, Fatigue, Night Sweats, Diaphoresis HEENT: Denies: Headaches, Rhinitis, Post Nasal Drip, Sinus Congestion, Sore Throat Pulmonary: Denies: Shortness of Breath, Wheezing, Pleuritic Chest Pain, Cough, Sputum Cardiovascular: Denies: Chest Pain, Palpitations, Dyspnea on Exertion, Orthopnea , PND, Edema, Lightheadedness Gastrointestinal: Reports: Abdominal Pain, Anorexia, Decreased Appetite, Distension, Nausea, Vomiting. Denies: Constipation, Diarrhea, Flatus Genitourinary: Denies: Dysuria, Frequency, Burning, Pain Exam - Exam Exam: See Below - Vital Signs Vital Signs: Last Vital Signs Temp 98.8 F 07/27/19 19:53 Pulse 147 H 07/27/19 19:53 Resp 20 07/27/19 19:53 BP 102/76 07/27/19 19:53 Pulse Ox 92 L 07/27/19 21:36 Weight: 114.351 kg - Exam General: Alert, Oriented, Cooperative, Moderate Distress HEENT: Conjunctiva Clear, EACs Clear, PERRLA. No: Mucosa Moist & [place] Neck: Supple, Trachea Midline. No: Lymphadenopathy Lungs: Decreased Breath Sounds, Crackles (bibasilar and occasional). No: Rales , Rhonchi, Wheezing Cardiovascular: Irregular Rhythm, Tachycardia. No: Systolic Murmur, Diastolic Murmur, Rubs, Gallop/S3, Gallop/S4 GI/Abdominal Exam: Other (laparoscopic wound dressing soiled with dry blood, abdomen appears distended, no BS are heard in any quadrant, no pain to palpation ) Extremities: Slow Capillary Refill. No: Pedal Edema Neuro Extensive - Mental Status: Alert, Oriented x3 - Patient Data Lab Results Last 24 hrs: Laboratory Results - last 24 hr 07/27/19 07/27/19 07/27/19 Range/Units 05:38 05:43 15:41 WBC 6.30 (4.23-9.07) K/mm3 RBC 4.68 (4.63-6.08) M/mm3 Hgb 14.3 D (13.7-17.5) gm/dl Hct 44.4 (40.1-51.0) % MCV 94.9 H D (79.0-92.2) fl MCH 30.6 (25.7-32.2) pg MCHC 32.2 (32.2-35.5) g/dl RDW Std Deviation 44.9 H (35.1-43.9) fL Plt Count 185 D (163-337) K/mm3 MPV 9.1 L (9.4-12.3) fl Neut % (Auto) 76.9 H (34.0-67.9) % Lymph % (Auto) 15.7 L (21.8-53.1) % [place] % (Auto) 6.7 (5.3-12.2) % Eos % (Auto) 0.3 L (0.8-7.0) Baso % (Auto) 0.2 (0.1-1.2) % Neut # (Auto) 4.85 (1.78-5.38) K/mm3 Lymph # (Auto) 0.99 L (1.32-3.57) K/mm3 [place] # (Auto) 0.42 (0.30-0.82) K/mm3 Eos # (Auto) 0.02 L (0.04-0.54) K/mm3 Baso # (Auto) 0.01 (0.01-0.08) K/mm3 Manual Slide Review Puncture Site Rt radial ABG pH 7.45 (7.35-7.45) ABG pCO2 45.1 H (35.0-45.0) mmHg ABG pO2 59.0 L (80.0-100.0) mmHg ABG HCO3 30.6 H (22.0-26.0) meq/L ABG O2 Saturation 91.1 L (96.0-97.0) % ABG Base Excess 6.0 H (-2-2.0) Awais Test Positive A-a Gradient 456 mmHg O2 Delivery Device Nrb Oxygen Flow Rate 15.0 FiO2 80.00 (21.00-100.00) % Sodium 138 (136-145) mEq/L Potassium 4.4 (3.5-5.1) mEq/L Chloride 103 (98-107) mEq/L Carbon Dioxide 29 (21-32) mEq/L Anion Gap 10.4 (5-15) BUN 18 (7-18) mg/dL Creatinine 1.2 (0.7-1.3) mg/dL Est Cr Clr Drug Dosing 61.37 mL/min Estimated GFR (MDRD) > 60 (>60) mL/min BUN/Creatinine Ratio 15.0 (14-18) Glucose 114 (80-115) mg/dL Calcium 8.1 L D (8.5-10.1) mg/dL Phosphorus (2.6-4.7) mg/dL Magnesium (1.8-2.4) mg/dl Troponin I (0.00-0.056) ng/mL 07/27/19 07/27/19 07/27/19 Range/Units 16:01 16:04 16:04 WBC 8.14 (4.23-9.07) K/mm3 RBC 4.87 (4.63-6.08) M/mm3 Hgb 14.9 (13.7-17.5) gm/dl Hct 46.2 (40.1-51.0) % MCV 94.9 H (79.0-92.2) fl MCH 30.6 (25.7-32.2) pg MCHC 32.3 (32.2-35.5) g/dl RDW Std Deviation 44.8 H (35.1-43.9) fL Plt Count 192 (163-337) K/mm3 MPV 9.0 L (9.4-12.3) fl Neut % (Auto) 83.1 H (34.0-67.9) % Lymph % (Auto) 9.6 L (21.8-53.1) % [place] % (Auto) 6.3 (5.3-12.2) % Eos % (Auto) 0.7 L (0.8-7.0) Baso % (Auto) 0.1 (0.1-1.2) % Neut # (Auto) 6.76 H (1.78-5.38) K/mm3 Lymph # (Auto) 0.78 L (1.32-3.57) K/mm3 [place] # (Auto) 0.51 (0.30-0.82) K/mm3 Eos # (Auto) 0.06 (0.04-0.54) K/mm3 Baso # (Auto) 0.01 (0.01-0.08) K/mm3 Manual Slide Review Abnormal smear Puncture Site ABG pH (7.35-7.45) ABG pCO2 (35.0-45.0) mmHg ABG pO2 (80.0-100.0) mmHg ABG HCO3 (22.0-26.0) meq/L ABG O2 Saturation (96.0-97.0) % ABG Base Excess (-2-2.0) Awais Test A-a Gradient mmHg O2 Delivery Device Oxygen Flow Rate FiO2 (21.00-100.00) % Sodium 138 (136-145) mEq/L Potassium 4.3 (3.5-5.1) mEq/L Chloride 101 (98-107) mEq/L Carbon Dioxide 30 (21-32) mEq/L Anion Gap 11.3 (5-15) BUN 19 H (7-18) mg/dL Creatinine 1.2 (0.7-1.3) mg/dL Est Cr Clr Drug Dosing 61.37 mL/min Estimated GFR (MDRD) > 60 (>60) mL/min BUN/Creatinine Ratio 15.8 (14-18) Glucose 123 H (80-115) mg/dL Calcium 8.6 (8.5-10.1) mg/dL Phosphorus 2.9 (2.6-4.7) mg/dL Magnesium 2.5 H (1.8-2.4) mg/dl Troponin I (0.00-0.056) ng/mL 07/27/19 07/27/19 Range/Units 16:04 20:05 WBC (4.23-9.07) K/mm3 RBC (4.63-6.08) M/mm3 Hgb (13.7-17.5) gm/dl Hct (40.1-51.0) % MCV (79.0-92.2) fl MCH (25.7-32.2) pg MCHC (32.2-35.5) g/dl RDW Std Deviation (35.1-43.9) fL Plt Count (163-337) K/mm3 MPV (9.4-12.3) fl Neut % (Auto) (34.0-67.9) % Lymph % (Auto) (21.8-53.1) % [place] % (Auto) (5.3-12.2) % Eos % (Auto) (0.8-7.0) Baso % (Auto) (0.1-1.2) % Neut # (Auto) (1.78-5.38) K/mm3 Lymph # (Auto) (1.32-3.57) K/mm3 [place] # (Auto) (0.30-0.82) K/mm3 Eos # (Auto) (0.04-0.54) K/mm3 Baso # (Auto) (0.01-0.08) K/mm3 Manual Slide Review Puncture Site Lt radial ABG pH 7.47 H (7.35-7.45) ABG pCO2 42.0 (35.0-45.0) mmHg ABG pO2 63.0 L (80.0-100.0) mmHg ABG HCO3 29.8 H (22.0-26.0) meq/L ABG O2 Saturation 93.2 L (96.0-97.0) % ABG Base Excess 5.8 H (-2-2.0) Awais Test Positive A-a Gradient 600 mmHg O2 Delivery Device Nrbmask Oxygen Flow Rate 15.0 FiO2 100.00 (21.00-100.00) % Sodium (136-145) mEq/L Potassium (3.5-5.1) mEq/L Chloride (98-107) mEq/L Carbon Dioxide (21-32) mEq/L Anion Gap (5-15) BUN (7-18) mg/dL Creatinine (0.7-1.3) mg/dL Est Cr Clr Drug Dosing mL/min Estimated GFR (MDRD) (>60) mL/min BUN/Creatinine Ratio (14-18) Glucose (80-115) mg/dL Calcium (8.5-10.1) mg/dL Phosphorus (2.6-4.7) mg/dL Magnesium (1.8-2.4) mg/dl Troponin I < 0.017 (0.00-0.056) ng/mL Result Diagrams: 07/27/19 16:04 07/27/19 16:04 Dexter Results Last 24 hrs: Microbiology 07/27/19 19:45 Gram Stain - Final Sputum - Expectorated Sepsis Event Note - Evaluation Sepsis Screening Result: No Definite Risk - Focused Exam Vital Signs: Vital Signs Temp Pulse Pulse Resp BP BP Pulse Ox 07/27/19 21:36 07/27/19 19:53 98.8 F 147 H 20 102/76 93 L 07/27/19 18:41 07/27/19 16:55 07/27/19 15:52 98.9 F 154 H 19 112/79 92 L 07/27/19 15:45 152 H 116/86 07/27/19 15:25 165 H 122/74 07/27/19 15:15 98.9 F 170 H 19 113/76 92 L 07/27/19 11:34 99.0 F 88 21 H 127/82 93 L Pulse Ox Pulse Ox Pulse Ox Pulse Ox 07/27/19 21:36 92 L 07/27/19 19:53 07/27/19 18:41 92 L 07/27/19 16:55 98 07/27/19 15:52 90 L 07/27/19 15:45 07/27/19 15:25 07/27/19 15:15 07/27/19 11:34 95 Date Exam was Performed: 07/27/19 Time Exam was Performed: 22:19 Consult PN Assessment/Plan POD#: 1 (1) Atrial fibrillation with rapid ventricular response SNOMED Code(s): 829670537241289 Code(s): I48.91 - UNSPECIFIED ATRIAL FIBRILLATION Current Visit: Yes (2) Right bundle branch block SNOMED Code(s): 95871281 Code(s): I45.10 - UNSPECIFIED RIGHT BUNDLE-BRANCH BLOCK Current Visit: Yes (3) Acute hypoxemic respiratory failure SNOMED Code(s): 104561978 Code(s): J96.01 - ACUTE RESPIRATORY FAILURE WITH HYPOXIA Current Visit: Yes (4) Hypermagnesemia SNOMED Code(s): 50678356 Code(s): E83.41 - HYPERMAGNESEMIA Current Visit: Yes (5) Status post gastrectomy SNOMED Code(s): 228351699, 14704051, 881117339 Code(s): Z90.3 - ACQUIRED ABSENCE OF STOMACH [PART OF] Current Visit: Yes (6) Perforated gastric ulcer SNOMED Code(s): 6928675 Code(s): K25.5 - CHRONIC OR UNSPECIFIED GASTRIC ULCER WITH PERFORATION Current Visit: Yes Problem List Initiated/Reviewed/Updated: Yes Plan: Atrial fibrillation with rapid ventricular response Right bundle branch block Acute hypoxemic respiratory failure New onset HR 100-141x' Started on Amiodarone drip without cardioversion for which drip will be placed on hold K, Mg, PO4 and calcium within normal limits Likely worsened by hypoxemia Patient has a STOP BANG of 7, so although this is new onset patient likely has been having paroxysmal episodes which have been asymptomatic Given the fact that Amiodarone did not cardiovert patient, attempted pharmacological cardioversion with loading diltiazem dose of 0.25 and 0.35mg/kg with minimal improvement in heart rate. Patient was started on diltiazem drip and given 2 doses of ibutilide with minimal improvement as well. As for hypoxemia, patient was placed on BiPAP Requesting Provider: Alvino Payan Date Consult Requested: 07/27/19 Reason for Consult: Atrial fibrillation with RVR and hypoxemia Patient History Reviewed: Yes Admission H&P Reviewed: Yes Consult Result/Summary:: RECOMMENDATIONS 1. Continue Diltiazem drip for rate control 2. Continue BiPAP, if oxygenation does not improve, consider mechanical ventilation 3. Lactic acid level to evaluate for sepsis 4. Replace volume loss per NG tube, preferably with LR 5. Repeat ABG's in 30-45min Hospitalist service to sign off Notified Requestor: Yes Time Spent (in minutes): 150
--- NOTE | 2019-07-27 22:05 | PCM.SN ---
- Free Text/Narrative Note: Interval Update: Mr. Carranza has been in refractory tachyarrhythmia after attempts at rate control with metoprolol injections and amiodarone infusion. His oxygen requirement is now 15 L non-rebreather to maintain SpO2 >90%, and I have been informed that there is not a ventilator available in the ICU at this time. I consulted the hospitalist regarding his arrhythmia, but due to serious concern for the patient's tenuous status I think the safest thing for the patient is to arrange for immediate transfer to a facility that has full ICU capabilities.
[2019-07-27] MEDS ORDERED: Succinylcholine 200 MG/10 ML MDV ONE (23:30)
[2019-07-27] MEDS ORDERED: Propofol 200 MG/20 ML SDV ONE (23:30)
[2019-07-27] MEDS ORDERED: propofoL 100 ML ONE (23:40)
[2019-07-27] MEDS ORDERED: propofoL 100 ML IV SCH (23:45)
--- NOTE | 2019-07-28 | PCM.SN ---
- Free Text/Narrative Note: 07/27/2019 [id number]- Was called to intubate patient because of low oxygen saturation. Visited with patient and explained situation. Pre oxygenated with sats only reaching 90%. Propofol and succinylcholine given IV . Intubated with 8.0 ETT with 3 MAC blade. Equal and bilateral breath sounds. ETCO2 color change positive. Tube secured by RT. Oral care given. Saturation up to 96% after intubation and oxygen. Sidney IRVING
--- NOTE | 2019-07-29 08:22 | CR ---
Upper GI 120 mL of Gastrografin were injected through nasogastric tube. Water then placed. On initial exam, contrast remained within the stomach remanent with no passage seen into the small bowel through the anastomosis. On one half hour delayed image contrast is seen to pass into proximal small bowel. There is edematous change being seen at the anastomotic site within the small bowel but no extravasation of any contrast is seen at this time. Impression: 1. Edematous change within proximal small bowel at the anastomosis. This is felt to be expected for recent surgery. 2. No obstruction is seen with contrast noted within proximal small bowel at 30 minutes. No extravasation of contrast is seen. Diagnostic code #2 This report was dictated in [place] Standard Time MTDD
--- NOTE | 2019-08-01 07:55 | PCM.DCSUM1 ---
Discharge Summary - Hospital Course Free Text/Narrative:: Mr. Carranza is a 63 yo admitted from the ER with peritonitis, found in the OR to have giant perforated gastric ulcer. This was not amenable to primary repair laparoscopically or open, and so an antrectomy with Billroth II reconstruction was performed. Postoperatively, the patient was transferred to the ICU after extubating without issue in the OR for monitoring. He initially did well, and on POD 1, an UGI study with contrast through the NG showed an intact gastrojejunal anastomosis without evidence of obstruction. AFter this procedure , however, the patient developed a narrow-complex, irregular tachyarrhythmia consistent with atrial fibrillation, with evidence of right bundle branch block as well. He was asymptomatic. Lab work including CBC, Chem 10 and troponin were unremarkable. The patient also had increased oxygen requirement at this time to maintain SpO2 >90%; he was stable at 10 L non-rebreather. He received 5 mg IV boluses of metoprolol x 2 without desired effect on HR, and an amiodarone bolus and infusion were started. After an hour of infusion, the patient still was in arrhythmia, and the hospitalist acting section chief was consulted for aid in management of his refractory arrhythmia. Ibutilide boluses were administered, and the amiodarone infusion was stopped and a diltiazem infusion was started by the hospitalist, Dr. Sandhu. This failed to chemically cardiovert the patient and he was still tachycardic. Shortly after this, his oxygen was increased to 15 L, and I was informed that there was no mechanical ventilator available for the patient if he were to require intubation. At this point, I called to arrange urgent transfer to [facility] in [place], and spoke with the civil engineer Dr. Mauro as well as the general surgeon acting section chief there about the patient and need for transfer. He was accepted, and prior to ground transportation via ambulance , the amiodarone infusion was restarted and he was intubated preemptively in the emergency room here. Diagnosis: Stroke: No - Discharge Data Discharge Date: 07/27/19 Discharge Disposition: DC/Tfer to Acute Hospital 02 Condition: Critical - Referral to [facility] Primary Care Physician: Emiliano Smith MD - Patient Summary/Data Operative Procedure(s) Performed: antrectomy with gastrojejunostomy Complications: pulmonary embolism, diagnosed after transfer Consults: Consultations 07/27/19 19:[address] Sandhu, Medicine, regarding arrhythmia - Patient Instructions Diet: NPO - Discharge Plan *PRESCRIPTION DRUG MONITORING PROGRAM REVIEWED*: Not Applicable *COPY OF PRESCRIPTION DRUG MONITORING REPORT IN PATIENT ELI: Not Applicable Home Medications: Home Meds . [No Known Home Meds] 07/26/19 [History] Patient Handouts: Peptic Ulcer, [id number], Steps to Quit Smoking Forms: ED Department Discharge Referrals: Alvino Payan MD [Physician] - Emiliano Smith MD [Primary Care Provider] - - Discharge Summary/Plan Comment DC Time >30 min.: No - Patient Data Vitals - Most Recent: Last Vital Signs Temp 36.6 C 07/27/19 22:06 Pulse 115 H 07/27/19 22:06 Resp 20 07/27/19 22:06 BP 121/99 H 07/27/19 22:06 Pulse Ox 94 L 07/27/19 22:06 Weight - Most Recent: 114.351 kg Med Orders - Current: Current Medications Discontinued Medications Acetaminophen (Tylenol) 975 mg PO Q8H AFSHAN Acetaminophen (Tylenol) 975 mg PO Q8H AFSHAN Albuterol (Proventil Neb Soln) 2.5 mg NEB ONETIME ONE Stop: 07/26/19 11:16 Last Admin: 07/26/19 11:28 Dose: 2.5 mg Albuterol (Proventil Neb Soln) 2.5 mg NEB ONETIME ONE Stop: 07/27/19 15:09 Last Admin: 07/27/19 15:52 Dose: 2.5 mg Bupivacaine HCl/Epinephrine Bitart (Marcaine 0.5%/Epinephrine 1:200,000) Confirm Administered Dose 50 ml .ROUTE .STK-MED ONE Stop: 07/26/19 05:30 Last Admin: 07/26/19 06:30 Dose: 23 ml Cefazolin Sodium (Ancef) Confirm Administered Dose 2 gm .ROUTE .STK-MED ONE Stop: 07/26/19 06:43 Clarithromycin (Biaxin) 500 mg PO BID [facility] Last Admin: 07/26/19 17:16 Dose: Not Given Clarithromycin (Biaxin) 500 mg PO BID [facility] Last Admin: 07/27/19 20:16 Dose: 500 mg Diatrizoate Meglum/Diatrizoate Sod (Gastrografin 37%) 120 ml PO ONETIME ONE Stop: 07/27/19 12:26 Last Admin: 07/27/19 12:40 Dose: 120 ml Diltiazem HCl (Cardizem) 30 mg IVPUSH ONETIME ONE Stop: 07/27/19 20:01 Last Admin: 07/27/19 20:13 Dose: 30 mg Diltiazem HCl (Cardizem) 40 mg 0.35 mg/kg (40 mg) IV NOW ONE Stop: 07/27/19 20:26 Last Admin: 07/27/19 20:31 Dose: 40 mg Ephedrine Sulfate (Ephedrine In Ns) Confirm Administered Dose 25 mg .ROUTE .STK- MED ONE Stop: 07/26/19 06:30 Fentanyl (Sublimaze) Confirm Administered Dose 250 mcg .ROUTE .STK-MED ONE Stop: 07/26/19 05:43 Fentanyl (Sublimaze) 50 mcg IVPUSH Q5M PRN PRN Reason: Pain Stop: 07/26/19 10:00 Furosemide (Lasix) 20 mg IVPUSH ONETIME ONE Stop: 07/27/19 08:11 Last Admin: 07/27/19 08:43 Dose: 20 mg Glycopyrrolate () Confirm Administered Dose 1 mg .ROUTE .STK-MED ONE Stop: 07/26/19 09:29 Heparin Sodium (Porcine) (Heparin Sodium) 5,000 units SUBCUT Q8H [facility] Last Admin: 07/26/19 17:16 Dose: Not Given Heparin Sodium (Porcine) (Heparin Sodium) 5,000 units SUBCUT Q8H [facility] Last Admin: 07/27/19 21:02 Dose: 5,000 units Hydromorphone HCl (Dilaudid) 1 mg IVPUSH ONETIME ONE Stop: 07/26/19 03:18 Last Admin: 07/26/19 03:25 Dose: 1 mg Hydromorphone HCl (Dilaudid) 1 mg IVPUSH ONETIME ONE Stop: 07/26/19 05:49 Last Admin: 07/26/19 05:54 Dose: 1 mg Hydromorphone HCl (Dilaudid) Confirm Administered Dose 1 mg .ROUTE .STK-MED ONE Stop: 07/26/19 07:31 Hydromorphone HCl (Dilaudid) 0.5 mg IVPUSH Q10M PRN PRN Reason: Pain (severe 7-10) Stop: 07/26/19 10:00 Hydromorphone HCl (Dilaudid) Confirm Administered Dose 0.5 mg .ROUTE .STK-MED ONE Stop: 07/26/19 08:29 Sodium Chloride (Normal Saline) 1,000 mls @ 150 mls/hr IV ASDIRECTED [facility]AN Last Admin: 07/26/19 03:27 Dose: 150 mls/hr Pantoprazole Sodium 80 mg/ (Sodium Chloride) 100 mls @ 8 mls/hr IV Q10H [facility] Last Admin: 07/26/19 04:49 Dose: 8 mls/hr Lidocaine HCl (Xylocaine-Mpf 1%) Confirm Administered Dose 4 mls @ as directed .ROUTE .[facility]-MED ONE Stop: 07/26/19 05:43 Lactated Ringer's (Ringers, Lactated) Confirm Administered Dose 1,000 mls @ as directed .ROUTE .[facility]-MED ONE Stop: 07/26/19 06:15 Lactated Ringer's (Ringers, Lactated) Confirm Administered Dose 1,000 mls @ as directed .ROUTE .ST-MED ONE Stop: 07/26/19 07:10 Lactated Ringer's (Ringers, Lactated) Confirm Administered Dose 1,000 mls @ as directed .ROUTE .[facility]-MED ONE Stop: 07/26/19 07:56 Lactated Ringer's (Ringers, Lactated) Confirm Administered Dose 1,000 mls @ as directed .ROUTE .ST-MED ONE Stop: 07/26/19 09:18 Lactated Ringer's (Ringers, Lactated) Confirm Administered Dose 1,000 mls @ as directed .ROUTE .ST-MED ONE Stop: 07/26/19 09:43 Lactated Ringer's (Ringers, Lactated) 1,000 mls @ 100 mls/hr IV ASDIRECTED [facility] Lactated Ringer's (Ringers, Lactated) 1,000 mls @ 125 mls/hr IV ASDIRECTED [facility] Last Admin: 07/27/19 04:52 Dose: 125 mls/hr Pantoprazole Sodium 40 mg/ (Sodium Chloride) 100 mls @ 200 mls/hr IV BID [facility] Metronidazole 500 mg/ Premix 100 mls @ 100 mls/hr IV Q8H [facility] Last Admin: 07/26/19 17:15 Dose: Not Given Metronidazole 500 mg/ Premix 100 mls @ 100 mls/hr IV Q8H [facility] Last Admin: 07/27/19 21:01 Dose: 100 mls/hr Potassium Chloride/Dextrose/Sod Cl (D5 1/2 Ns W/ 20 Meq/L Kcl) 1,000 mls @ 50 mls/hr IV ASDIRECTED [facility]AN Last Admin: 07/27/19 08:41 Dose: 50 mls/hr Amiodarone HCl/Dextrose 150 mg (/ Premix) 100 mls @ 582.524 mls/hr IV .BOLUS ONE Stop: 07/27/19 16:10 Last Admin: 07/27/19 15:59 Dose: 582.524 mls/hr Amiodarone HCl/Dextrose (Nexterone In Dextrose 360 Mg/200 Ml) 360 mg in 200 mls @ 33.333 mls/hr IV ASDIRECTED AFSHAN; Protocol Last Admin: 07/27/19 16:17 Dose: 33.333 mls/hr Diltiazem HCl 125 mg/ Sodium (Chloride) 125 mls @ 5 mls/hr IV TITRATE AFSHAN; Protocol Last Titration: 07/27/19 22:07 Dose: 15 mg/hr, 15 mls/hr Ibutilide Fumarate 1 mg/ (Sodium Chloride) 60 mls @ 360 mls/hr IV ONETIME ONE Stop: 07/27/19 21:24 Last Admin: 07/27/19 21:22 Dose: 360 mls/hr Ibutilide Fumarate 1 mg/ (Sodium Chloride) 60 mls @ 360 mls/hr IV ONETIME ONE Stop: 07/27/19 21:54 Last Admin: 07/27/19 21:52 Dose: 360 mls/hr Sodium Chloride (Normal Saline) Confirm Administered Dose 50 mls @ as directed .ROUTE .STK-MED ONE Stop: 07/27/19 21:45 Last Admin: 07/27/19 22:10 Dose: Not Given Amiodarone HCl/Dextrose (Nexterone In Dextrose 360 Mg/200 Ml) 360 mg in 200 mls @ 33.333 mls/hr IV ASDIRECTED AFSHAN; Protocol Last Admin: 07/27/19 23:50 Dose: 33.333 mls/hr Amiodarone HCl/Dextrose (Nexterone In Dextrose 360 Mg/200 Ml) Confirm Administered Dose 360 mg in 200 mls @ as directed .ROUTE .STK-MED ONE Stop: 07/27/19 23:20 Last Admin: 07/28/19 00:16 Dose: Not Given Propofol (Diprivan 100 Ml) Confirm Administered Dose 100 mls @ as directed .ROUTE .STK-MED ONE Stop: 07/27/19 23:41 Last Admin: 07/28/19 00:15 Dose: Not Given Propofol (Diprivan 100 Ml) 100 mls @ 3.431 mls/hr IV TITRATE AFSHAN; Protocol Last Admin: 07/27/19 23:39 Dose: 10 mcg/kg/min, 6.861 mls/hr Ketamine HCl (Ketalar) Confirm Administered Dose 500 mg .ROUTE .STK-MED ONE Stop: 07/26/19 08:20 Metoclopramide HCl (Reglan) 5 mg IVPUSH ONETIME ONE Stop: 07/27/19 15:21 Last Admin: 07/27/19 15:32 Dose: 5 mg Metoprolol Tartrate (Lopressor) Confirm Administered Dose 5 mg .ROUTE .STK-MED ONE Stop: 07/27/19 15:12 Last Admin: 07/27/19 17:17 Dose: Not Given Metoprolol Tartrate (Lopressor) 5 mg IVPUSH ONETIME ONE Stop: 07/27/19 15:21 Last Admin: 07/27/19 15:45 Dose: 5 mg Metoprolol Tartrate (Lopressor) 5 mg IVPUSH ONETIME ONE Stop: 07/27/19 15:21 Last Admin: 07/27/19 15:25 Dose: 5 mg Midazolam HCl (Versed 1 Mg/Ml) Confirm Administered Dose 2 mg .ROUTE .STK-MED ONE Stop: 07/26/19 05:43 Morphine Sulfate (Morphine) 1 mg IVPUSH Q2H PRN PRN Reason: Pain (severe 7-10) Last Admin: 07/27/19 11:58 Dose: 1 mg Neostigmine Methylsulfate (Neostigmine) Confirm Administered Dose 5 mg .ROUTE .STK-MED ONE Stop: 07/26/19 09:29 Ondansetron HCl (Zofran) 4 mg IVPUSH ONETIME ONE Stop: 07/26/19 03:18 Last Admin: 07/26/19 03:26 Dose: 4 mg Ondansetron HCl (Zofran) Confirm Administered Dose 4 mg .ROUTE .STK-MED ONE Stop: 07/26/19 05:43 Ondansetron HCl (Zofran) 4 mg IVPUSH ONETIME PRN PRN Reason: Nausea/Vomiting Stop: 07/26/19 12:00 Oxycodone HCl (Oxycodone) 5 mg PO Q4H PRN PRN Reason: Pain (moderate 4-6) Oxycodone HCl (Oxycodone) 5 mg PO Q4H PRN PRN Reason: Pain (moderate 4-6) Pantoprazole Sodium (Protonix Iv) 40 mg IVPUSH ONETIME ONE Stop: 07/26/19 04:32 Last Admin: 07/26/19 04:49 Dose: 40 mg Pantoprazole Sodium (Protonix Iv) 40 mg IV Q12H [facility] Last Admin: 07/26/19 17:16 Dose: Not Given Pantoprazole Sodium (Protonix Iv) 40 mg IV Q12H [facility] Last Admin: 07/27/19 16:39 Dose: 40 mg Phenylephrine HCl (Phenylephrine In Ns 100 Mcg/Ml) Confirm Administered Dose 1 mg .ROUTE .STK-MED ONE Stop: 07/26/19 06:46 Pneumococcal Polyvalent Vaccine (Pneumovax 23) 0.5 ml IM .ONCE ONE Stop: 07/26/19 12:24 Last Admin: 07/26/19 14:19 Dose: Not Given Propofol (Diprivan 20 Ml) Confirm Administered Dose 200 mg .ROUTE .STK-MED ONE Stop: 07/26/19 05:43 Propofol (Diprivan 20 Ml) 200 mg .ROUTE .STK-MED ONE Stop: 07/27/19 23:31 Rocuronium [place] (Zemuron) Confirm Administered Dose 50 mg .ROUTE .STK-MED ONE Stop: 07/26/19 05:43 Rocuronium [place] (Zemuron) Confirm Administered Dose 50 mg .ROUTE .STK-MED ONE Stop: 07/26/19 08:07 Succinylcholine Chloride (Succinylcholine In Ns Pf) Confirm Administered Dose 100 mg .ROUTE .STK-MED ONE Stop: 07/26/19 06:15 Succinylcholine Chloride (Quelicin) 200 mg .ROUTE .STK-MED ONE Stop: 07/27/19 23:31 Vecuronium [place] (Vecuronium) 20 mg .ROUTE .STK-MED ONE Stop: 07/27/19 23:31
== END 2019-07-28 00:15 | disposition home or self-care (01) | DRG 326 ==
LOC: JD.ED 01:18 → JD.SDS 05:01 → JD.ICU 09:46 → MERGE 09:46
PROVIDERS: ADMIT Surgery; ATTEND Surgery
PROC: 0DB70ZZ Excision of Stomach, Pylorus, Open Approach (ICD-10-PCS; 2019-07-26)
PROC: 0D160ZA Bypass Stomach to Jejunum, Open Approach (ICD-10-PCS; 2019-07-26)
PROC: 0BH17EZ Insertion of Endotracheal Airway into Trachea, Via Natural or Artificial Opening (ICD-10-PCS; principal; 2019-07-28)
DX: K25.5 Chronic or unspecified gastric ulcer with perforation (principal); J96.01 Acute respiratory failure with hypoxia; K21.9 Gastro-esophageal reflux disease without esophagitis; F17.210 Nicotine dependence, cigarettes, uncomplicated; I48.91 Unspecified atrial fibrillation; I45.10 Unspecified right bundle-branch block; E83.41 Hypermagnesemia; Z90.3 Acquired absence of stomach [part of]; Z53.31 Laparoscopic surgical procedure converted to open procedure
CPT/HCPCS: 00840; 31500; 36415; 36600; 51702; 71045; 71045-26; 74018; 74018-26; 74240; 74240-26; 74246-26; 80048; 80053; 82803; 83690; 83735; 84100; 84484; 85007; 85025; 85027; 87070; 87184; 87205; 93005; 93010; 94640; 96365; 96366; 96375; 96376; 99222; 99285; 99285-25; A9270-GY; C9113; J0282; J0330; J0690; J1170; J1644; J1742; J2001; J2250; J2270; J2370; J2405; J2704; J2710; J2765; J3010; J3480; J3490; J7030; J7050; J7120; Q9963

== ENCOUNTER 2019-12-02 06:46 | Day surgery (SDC) | payer OTHER ==
[2019-12-02] MEDS ORDERED: Sodium Chloride 0.9% 10 ML Syringe FLUSH PRN (07:00)
[2019-12-02] MEDS ORDERED: Lidocaine 1%/Sod Bicarbonate in NS 8.4% 1 ML Syringe IDERM PRN (07:00)
[2019-12-02] MEDS ORDERED: Lactated Ringers 1,000 ML IV SCH (07:00)
[2019-12-02] MEDS ORDERED: fentaNYL 100 MCG/2 ML SDV ONE (07:25)
[2019-12-02] MEDS ORDERED: Propofol 200 MG/20 ML SDV ONE ×2 (07:25→07:26)
[2019-12-02] MEDS ORDERED: Lidocaine 1% 4 ML ONE (07:27)
--- NOTE | 2019-12-02 07:41 | PCM.PREANE ---
Preanesthetic Assessment - Procedure Proposed Procedure: EGD / colonoscopy - Anesthesia/Transfusion/Family Hx Anesthesia History: Prior Anesthesia Without Reaction Transfusion History: No Prior Transfusion(s) - Review of Systems General: No Symptoms Pulmonary: No Symptoms Cardiovascular: No Symptoms Gastrointestinal: No Symptoms Neurological: No Symptoms Other: Reports: None - Physical Assessment Vital Signs: Last Vital Signs Temp 97.8 F 12/02/19 07:18 Pulse 62 12/02/19 07:18 Resp 16 12/02/19 07:18 BP 136/78 12/02/19 07:18 Pulse Ox 96 12/02/19 07:18 ASA Class: 2 Mental Status: Alert & Oriented x3 Airway Class: Mallampati = 1 Dentition: Reports: Dentures, Edentulous Thyro-Mental Finger Breadths: 3 Mouth Opening Finger Breadths: 3 ROM/Head Extension: Full Lungs: Clear to Auscultation, Normal Respiratory Effort Cardiovascular: Regular Rate, Regular Rhythm - Imaging/EKG Impressions: previous EKG is SR with RBBB - Allergies Allergies/Adverse Reactions: Allergies Allergy/AdvReac Type Severity Reaction Status Date / Time No Known Allergies Allergy Verified 12/02/19 07:56 - Acknowledgements Anesthesia Type Planned: MAC Pt an Appropriate Candidate for the Planned Anesthesia: Yes Alternatives and Risks of Anesthesia Discussed w Pt/Guardian: Yes Pt/Guardian Understands and Agrees with Anesthesia Plan: Yes PreAnesthesia Questionnaire Cardiovascular History: Reports: High Cholesterol, Prior Cardiac Arrest, Other ( See Below) Other Cardiovascular History: episode of afib, Pulm. 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 Gastrointestinal History: Reports: GERD, Other (See Below) Other Gastrointestinal History: peptic ulcer hx - Past Surgical History HEENT Surgical History: Reports: Other (See Below) GI Surgical History: Reports: Hernia, Inguinal, Other (See Below) (Partial gastrectomy) - HOME MEDS Home Medications: Home Meds Apixaban [Eliquis] 5 mg PO BID 12/02/19 [History] Pantoprazole Sodium [Protonix] 40 mg PO DAILY 12/02/19 [History] - CURRENT (IN HOUSE) MEDS Current Meds: Current Medications Lactated Ringer's (Ringers, Lactated) 1,000 mls @ 125 mls/hr IV ASDIRECTED [facility]SHAN Stop: 12/02/19 23:00 Lidocaine/Sodium Bicarbonate (Buffered Lidocaine 1% In Ns 8.4%) 0.25 ml IDERM ONETIME PRN PRN Reason: Prior to IV Start Stop: 12/02/19 18:00 Sodium Chloride (Saline Flush) 10 ml FLUSH ASDIRECTED PRN PRN Reason: Keep Vein Open Stop: 12/02/19 18:00 Discontinued Medications Fentanyl (Sublimaze) Confirm Administered Dose 100 mcg .ROUTE .STK-MED ONE Stop: 12/02/19 07:26 Lidocaine HCl (Xylocaine-Mpf 1%) Confirm Administered Dose 4 mls @ as directed .ROUTE .STK-MED ONE Stop: 12/02/19 07:28 Propofol (Diprivan 20 Ml) Confirm Administered Dose 400 mg .ROUTE .STK-MED ONE Stop: 12/02/19 07:26 Propofol (Diprivan 20 Ml) Confirm Administered Dose 200 mg .ROUTE .STK-MED ONE Stop: 12/02/19 07:27
--- NOTE | 2019-12-02 08:57 | PCM.PRNOTE ---
- Free Text/Narrative Note: Date: 12/02/2019 Procedure: screening esophagogastroenteroscopy, colonoscopy Endoscopist: Alvino Payan MD Findings: healthy-appearing gastrojejunal anastomosis, widely patent. Colon prep was fair with lots of bubbles. Mild diverticular disease and internal hemorrhoids; no polyps identified. Detailed Report: The patient was taken to the endoscopy suite and placed in left lateral decubitus position. Time out was performed and monitored anesthesia care was initiated. A bite block was placed. The endoscope was inserted into the mouth and advanced into the stomach. The gastrojejunal anastomosis was seen and appeared widely patent and healthy without evidence of ulceration. Some minor scope trauma resulted in limited bleeding at the gastrojejunal interface. The fundus appeared normal with no hiatal hernia noted. The Z line appeared normal as did the rest of the esophagus. Air was suctioned and the scope withdrawn. Attention was then turned to colonoscopy. The anus appeared normal. Digital rectal exam was unremarkable. The lubricated colonoscope was then inserted and advanced all the way to the cecum. The ileocecal valve and appendiceal visualized. The prep was fair- there were a lot of bubbles adherent to the mucosal surfaces. On slow withdrawal of the scope, mucosal surfaces were carefully inspected. No polyps were visualized. There was mild diverticular disease of the sigmoid colon and grade I internal hemorrhoids noted. Air was evacuated and the scope completely withdrawn. The patient tolerated the procedure well.
--- NOTE | 2019-12-02 09:07 | PCM48HPAN ---
Post Anesthesia Note - EVALUATION WITHIN 48HRS OF ANESTHETIC Vital Signs in Normal Range: Yes Patient Participated in Evaluation: Yes Respiratory Function Stable: Yes Airway Patent: Yes Cardiovascular Function Stable: Yes Hydration Status Stable: Yes Pain Control Satisfactory: Yes Nausea and Vomiting Control Satisfactory: Yes Mental Status Recovered: Yes Vital Signs: Last Vital Signs Temp 97.3 F 12/02/19 08:55 Pulse 66 12/02/19 08:55 Resp 14 12/02/19 08:55 BP 108/80 12/02/19 08:55 Pulse Ox 95 12/02/19 08:55
== END 2019-12-02 10:00 | disposition home or self-care (01) ==
LOC: JD.SDS 06:46
PROVIDERS: ATTEND Surgery
DX: Z12.11 Encounter for screening for malignant neoplasm of colon (principal); K57.30 Diverticulosis of large intestine without perforation or abscess without bleeding; K63.89 Other specified diseases of intestine; K64.8 Other hemorrhoids; K21.9 Gastro-esophageal reflux disease without esophagitis; E03.9 Hypothyroidism, unspecified; E78.5 Hyperlipidemia, unspecified; E78.00 Pure hypercholesterolemia, unspecified; Z79.899 Other long term (current) drug therapy; Z87.891 Personal history of nicotine dependence
CPT/HCPCS: 43235; 45378; J2001; J2704; J3010; J7120; 00813

== ENCOUNTER 2020-05-01 16:24 | Emergency (ER) | payer OTHER ==
--- NOTE | 2020-05-01 17:06 | EDM.PDOC ---
ED HPI GENERAL MEDICAL PROBLEM - General Chief Complaint: Abdominal Pain Stated Complaint: BULDGE IN MIDDLE OF ABDOMEN Time Seen by Provider: 05/01/20 16:42 Source of Information: Reports: Patient, Old Records, RN Notes Reviewed History Limitations: Reports: No Limitations - History of Present Illness INITIAL COMMENTS - FREE TEXT/NARRATIVE: Patient is a 64-year-old male who presents to the ED for evaluation of a bulge in the middle of his abdomen. Patient notes that he was at work at around 1:45 PM, when he felt a ripping sensation in his stomach, and then an intense burni ng, he states like his abdomen was on fire. He did notice a bulge in the middle of his abdomen, that he equated to about being fist size. He notes that at work he has been doing repeated bending over, picking up about 3.5 pound weights. He notes that the bulge in the abdomen seems to have gotten better when he was being brought here by his friend. He was at [facility]. He is not having any nausea or vomiting, he did have a bowel movement 2 hours prior to the injury, states he is still able to pass gas after this, but has had no actual bowel movement at this time. He states that the pain is fairly tolerable and rates it about a 3 out of 10 at this time. He does note that he had surgery in July 2019 for perforated ulcer, performed by Dr. Payan in this facility. Patient denies any other sick-like symptoms, fever/chills, cough/shortness of breath, nausea/vomiting/diarrhea. Middle Abdomen Pain Score (Numeric/FACES): 3 - Related Data Allergies Allergy/AdvReac Type Severity Reaction Status Date / Time No Known Allergies Allergy Verified 12/02/19 07:56 Home Meds: Home Meds Apixaban [Eliquis] 5 mg PO BID 12/02/19 [History] Pantoprazole Sodium [Protonix] 40 mg PO DAILY 12/02/19 [History] Past Medical History Cardiovascular History: Reports: High Cholesterol, Prior Cardiac Arrest, Other (See Below) Other Cardiovascular History: episode of afib, Pulm. 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 Respiratory History: Reports: PE, Other (See Below) Other Respiratory History: PE Gastrointestinal History: Reports: GERD, Other (See Below) Other Gastrointestinal History: peptic ulcer hx Genitourinary History: Reports: Other (See Below) Other Genitourinary History: dysuria Musculoskeletal History: Reports: Osteoarthritis Endocrine/Metabolic History: Reports: Hypothyroidism Hematologic History: Reports: Bleeding Disorder - Past Surgical History GI Surgical History: Reports: Hernia, Inguinal, Other (See Below) (exploratory laparascopy for Perforated ulcer Jul 2019) Social & Family History - Tobacco Use Tobacco Use Status *Q: Never Tobacco User - Caffeine Use Caffeine Use: Reports: Coffee, Soda - Recreational Drug Use Recreational Drug Use: No - Living Situation & Occupation Living situation: Reports: , with Spouse Occupation: Employed ([employer]) ED ROS GENERAL - Review of Systems Review Of Systems: Comprehensive ROS is negative, except as noted in HPI. ED EXAM, GI/ABD - Physical Exam Exam: See Below Exam Limited By: No Limitations General Appearance: Alert, WD/WN, No Apparent Distress Respiratory/Chest: No Respiratory Distress, Lungs Clear, Normal Breath Sounds, No Accessory Muscle Use, Chest Non-Tender Cardiovascular: Normal Peripheral Pulses, Regular Rate, Rhythm, No Murmur GI/Abdominal Exam: Normal Bowel Sounds, Soft, Non-Tender, No Distention, No Mass, Hernia (There does appear to be a bulge on the mid left abdomen, near the midline incision. This does worsen when he puts his head to his chest and does a sit up motion. He states it is also nontender with palpation.) Extremities: Normal Inspection, Normal Capillary Refill Neurological: Alert, Oriented, Normal Cognition, No Motor/Sensory Deficits Psychiatric: Normal Affect, Normal Mood Skin Exam: Warm, Dry, Intact, Normal Color, No Rash Course - Vital Signs Last Recorded V/S: Last Vital Signs Temp 99.1 F 05/01/20 16:45 Pulse 69 05/01/20 16:45 Resp 20 05/01/20 16:45 BP 128/80 05/01/20 16:45 Pulse Ox 95 05/01/20 16:45 - Orders/Labs/Meds Orders: Active Orders 24 hr Category Date Time Status Abdomen Pelvis wo Cont [CT] Stat Exams 05/01/20 17:06 Taken ANNELISE Bandage [Elastic Wrap] [OM.PC] Routine Oth 05/01/20 18:50 Ordered Labs: Laboratory Tests 05/01/20 05/01/20 Range/Units 17:21 17:21 WBC 6.38 (4.23-9.07) K/mm3 RBC 4.97 (4.63-6.08) M/mm3 Hgb 15.3 (13.7-17.5) gm/dl Hct 45.5 (40.1-51.0) % MCV 91.5 (79.0-92.2) fl MCH 30.8 (25.7-32.2) pg MCHC 33.6 (32.2-35.5) g/dl RDW Std Deviation 42.2 (35.1-43.9) fL Plt Count 226 (163-337) K/mm3 MPV 8.4 L (9.4-12.3) fl Neut % (Auto) 51.0 (34.0-67.9) % Lymph % (Auto) 36.4 (21.8-53.1) % [place] % (Auto) 8.0 (5.3-12.2) % Eos % (Auto) 4.1 (0.8-7.0) Baso % (Auto) 0.5 (0.1-1.2) % Neut # (Auto) 3.26 (1.78-5.38) K/mm3 Lymph # (Auto) 2.32 (1.32-3.57) K/mm3 [place] # (Auto) 0.51 (0.30-0.82) K/mm3 Eos # (Auto) 0.26 (0.04-0.54) K/mm3 Baso # (Auto) 0.03 (0.01-0.08) K/mm3 Sodium 138 (136-145) mEq/L Potassium 4.3 (3.5-5.1) mEq/L Chloride 103 (98-107) mEq/L Carbon Dioxide 27 (21-32) mEq/L Anion Gap 12.3 (5-15) BUN 19 H (7-18) mg/dL Creatinine 1.2 (0.7-1.3) mg/dL Est Cr Clr Drug Dosing 60.55 mL/min Estimated GFR (MDRD) > 60 (>60) mL/min BUN/Creatinine Ratio 15.8 (14-18) Glucose 102 (80-115) mg/dL Calcium 9.0 (8.5-10.1) mg/dL Total Bilirubin 0.4 (0.2-1.0) mg/dL AST 11 L (15-37) U/L ALT 17 (16-63) U/L Alkaline Phosphatase 77 (46-116) U/L C-Reactive Protein 0.9 (<1.0) mg/dL Total Protein 7.0 (6.4-8.2) g/dl Albumin 3.6 (3.4-5.0) g/dl Globulin 3.4 gm/dL Albumin/Globulin Ratio 1.1 (1-2) Lipase 140 (73-393) U/L - Re-Assessments/Exams Free Text/Narrative Re-Assessment/Exam: 05/01/20 18:30 Patient presents to the ED for evaluation of his bulge in his abdomen. I did order a CT without contrast for evaluation and it did demonstrate a rather large abdominal hernia in the ventral abdominal wall. Arises superior to the umbilicus, centered just to the left of midline. The hernia sac measures 7.5 x 6.1 x 3.3 cm. It does contain a short segment of unobstructed small bowel. The labs that were taken at today's visit also are unremarkable. I do believe we would be able to get the gentleman in an abdomen binder, and have him avoid heavy lifting over the weekend and follow-up with Dr. Payan sometime early next week for further evaluation and management. 05/01/20 18:[address] Payan was in the ER consulting on another case, he states he will come see the patient briefly and would like to follow-up with the patient on Monday in his clinic. We will try to arrange this as best we can. Departure - Departure Time of Disposition: 18:35 Disposition: Home, Self-Care 01 Condition: Good Clinical Impression: Hernia of anterior abdominal wall - Discharge Information *PRESCRIPTION DRUG MONITORING PROGRAM REVIEWED*: No *COPY OF PRESCRIPTION DRUG MONITORING REPORT IN PATIENT ELI: No Instructions: Hernia, Adult, [id number] Referrals: Brendon Estrella MD [Primary Care Provider] - Alvino Payan MD [Physician] - 05/06/20 Forms: ED Department Discharge, ED Return to Work/School Form Additional Instructions: You were evaluated in the ER today for bulge in your abdomen. A CT was performed, along with labs. All of your labs are unremarkable. The CT did demonstrate a hernia on your abdominal wall, that rather large. Dr. Payan our general surgeon on-call was consulted on your case, he states he would like to see you in his office on Monday for further evaluation and management. Please call his office at [phone], on Monday to obtain an appointment. We did send information on your behalf to the clinic in hopes that they will call to schedule you on Monday. If you do not hear from his office by later Monday afternoon, please call the number above and ask for Dr. Payan's nurse. At this time none of the bowel is obstructed, but if you should have any increased nausea or vomiting where you are not able to keep any food or fluids down, you are having increased abdomen pain, tenderness in the area, or cannot have a successful bowel movement, this to be cause for concern to return to the ER for more emergent management. You may use Tylenol or ibuprofen every 6 hours as needed for further comfort. Please do not lift more than 5 pounds as to not aggravate the hernia any further. Please return to the ER at any time if your symptoms change or worsen. Sepsis Event Note (ED) - Evaluation Sepsis Screening Result: No Definite Risk - Focused Exam Vital Signs: Vital Signs Temp Pulse Resp BP Pulse Ox 05/01/20 16:45 99.1 F 69 20 128/80 95 - My Orders Last 24 Hours: My Active Orders 05/01/20 17:06 Abdomen Pelvis wo Cont [CT] Stat 05/01/20 18:50 ANNELISE Bandage [Elastic Wrap] [OM.PC] Routine - Assessment/Plan Last 24 Hours: My Active Orders 05/01/20 17:06 Abdomen Pelvis wo Cont [CT] Stat 05/01/20 18:50 ANNELISE Bandage [Elastic Wrap] [OM.PC] Routine
--- NOTE | 2020-05-04 09:12 | CT ---
PROCEDURE INFORMATION: Exam: CT Abdomen And Pelvis Without Contrast Exam date and time: 05/01/2020 5:40 PM Age: 64 years old Clinical indication: Abdominal pain; Other: Bulge to left of surgical incision today with burning; Prior surgery; Surgery date: 6+ months; Surgery type: Stomach for perforated uicer jul 2019. Has midline abdomen incision TECHNIQUE: Imaging protocol: Computed tomography of the abdomen and pelvis without contrast. Radiation optimization: All CT scans at this facility use at least one of these dose optimization techniques: automated exposure control; mA and/or kV adjustment per patient size (includes targeted exams where dose is matched to clinical indication); or iterative reconstruction. COMPARISON: DX Abdomen 1V Upright 07/26/2019 3:59 AM FINDINGS: Lungs: The lung bases are clear. There is a calcified granuloma in the left lower lobe. There are no pleural effusions. Liver: The liver is homogeneous in appearance without focal hepatic lesions. Gallbladder and bile ducts: The gallbladder is not distended. There is no biliary ductal dilatation. Pancreas: The pancreas is within normal limits. Spleen: The spleen is normal in size. Adrenal glands: The adrenal glands are normal in appearance. Kidneys and ureters: The kidneys are symmetric in size. There is no evidence of hydronephrosis or renal stone. The left ureter is mildly dilated all the way to the level of the bladder. No ureteral calculi are identified. Stomach and bowel: There has been a previous partial gastrectomy with gastrojejunal anastomosis. No pathologically dilated small bowel loops are identified. There is no evidence of colonic wall thickening or pericolonic inflammation. Appendix: There is a normal appendix in the right lower quadrant. Intraperitoneal space: There is no free air or free fluid in the abdomen or pelvis. Vasculature: The aorta is normal in caliber. Lymph nodes: No pathologically enlarged lymph nodes are identified in the abdomen or pelvis. Urinary bladder: There is a small diverticulum arising from the posterior aspect of the bladder, just medial to the left UVJ. The bladder is otherwise unremarkable. Reproductive: The prostate gland and seminal vesicles are unremarkable. Bones/joints: There is normal alignment throughout the visualized portion of the spine. No acute fractures or aggressive bone lesions are identified. Soft tissues: There is a ventral abdominal wall hernia arising superior to the umbilicus, centered just to the left of midline. The hernia sac measures 7.5 x 6.1 x 3.3 cm. It contains a short segment of unobstructed small bowel. IMPRESSION: Ventral abdominal wall hernia arising superior to the umbilicus centered just to the left of midline. The this appears to be at the inferior margin of a previous ventral abdominal wall incision. The hernia sac contains a short segment of unobstructed small bowel. Thank you for allowing us to participate in the care of your patient. Dictated and Authenticated by: Vandana Mccormack MD 05/01/2020 7:02 PM Central Time ([place] & [place]) HUGH
== END 2020-05-01 19:28 | disposition home or self-care (01) ==
LOC: JD.ED 16:24
DX: K43.9 Ventral hernia without obstruction or gangrene (principal); K21.9 Gastro-esophageal reflux disease without esophagitis; Z86.711 Personal history of pulmonary embolism; Z79.01 Long term (current) use of anticoagulants; Z79.899 Other long term (current) drug therapy
CPT/HCPCS: 36415; 74176; 74176-26; 80053; 83690; 85025; 86140; 99283; 99284-25

== ENCOUNTER 2020-06-23 07:27 | Day surgery (SDC) | payer OTHER ==
[~2020-06-23 07:27] MED LIST: Lactated Ringers 1,000 ML IV SCH; Lidocaine 1%/Sod Bicarbonate in NS 8.4% 1 ML Syringe IDERM PRN; Sodium Chloride 0.9% 10 ML Syringe FLUSH PRN
[2020-06-23] MEDS ORDERED: Midazolam 1 MG/ML 2 ML SDV ONE (07:29)
[2020-06-23] MEDS ORDERED: fentaNYL 250 MCG/5 ML SDV ONE (07:30)
[2020-06-23] MEDS ORDERED: Lidocaine 1% 6 ML ONE (07:30)
[2020-06-23] MEDS ORDERED: Propofol 200 MG/20 ML SDV ONE (07:31)
[2020-06-23] MEDS ORDERED: Bupivacaine 0.5% 30 ML SDV ONE (07:33)
[2020-06-23] MEDS ORDERED: Rocuronium 50 MG/5 ML Vial ONE (07:37)
[2020-06-23] MEDS ORDERED: Succinylcholine/Sod PF 100 MG/5 ML SYRINGE IV ONE (07:40)
--- NOTE | 2020-06-23 08:10 | PCM.PREANE ---
Preanesthetic Assessment - Procedure Proposed Procedure: Incisional hernia repair - Anesthesia/Transfusion/Family Hx Anesthesia History: Prior Anesthesia Without Reaction Transfusion History: No Prior Transfusion(s) - Review of Systems General: No Symptoms Pulmonary: No Symptoms Cardiovascular: No Symptoms Gastrointestinal: No Symptoms Neurological: No Symptoms Other: Reports: None - Physical Assessment NPO Status Date: 06/22/20 NPO Status Time: 19:00 Vital Signs: Last Vital Signs Temp 98.0 F 06/23/20 07:30 Pulse 65 06/23/20 07:30 Resp 16 06/23/20 07:30 BP 120/81 06/23/20 07:30 Pulse Ox 96 06/23/20 07:30 Height: 1.75 m Weight: 127.459 kg ASA Class: 3 Mental Status: Alert & Oriented x3 Airway Class: Mallampati = 2 Dentition: Reports: Dentures, Edentulous Thyro-Mental Finger Breadths: 3 Mouth Opening Finger Breadths: 3 ROM/Head Extension: Full Lungs: Clear to Auscultation, Normal Respiratory Effort Cardiovascular: Regular Rate, Regular Rhythm - Allergies Allergies/Adverse Reactions: Allergies Allergy/AdvReac Type Severity Reaction Status Date / Time No Known Allergies Allergy Verified 06/22/20 15:52 - Acknowledgements Anesthesia Type Planned: General Anesthesia, Regional Block (possible TAP block postoperatively) Pt an Appropriate Candidate for the Planned Anesthesia: Yes Alternatives and Risks of Anesthesia Discussed w Pt/Guardian: Yes Pt/Guardian Understands and Agrees with Anesthesia Plan: Yes PreAnesthesia Questionnaire HEENT History: Reports: Other (See Below) Other HEENT History: ABCESSED TOOTH, LEFT UPPER LIP REPAIR, HAS DENTURES AND GLASSES Cardiovascular History: Reports: Afib, Heart Failure, High Cholesterol, Prior Cardiac Arrest, Other (See Below) Other Cardiovascular History: episode of afib, Pulm. 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 Respiratory History: Reports: COPD, PE, Other (See Below) Other Respiratory History: PE Gastrointestinal History: Reports: Chronic Constipation, GERD, PUD, Other (See Below) Other Gastrointestinal History: peptic ulcer hx Genitourinary History: Reports: Other (See Below) Other Genitourinary History: dysuria, cystitis [employer] History: Reports: None Musculoskeletal History: Reports: Osteoarthritis Neurological History: Reports: None Psychiatric History: Reports: None Endocrine/Metabolic History: Reports: Hypothyroidism Hematologic History: Reports: Bleeding Disorder Immunologic History: Reports: None Oncologic (Cancer) History: Reports: None Dermatologic History: Reports: None - Infectious Disease History Infectious Disease History: Reports: None - Past Surgical History Head Surgeries/Procedures: Reports: None HEENT Surgical History: Cardiovascular Surgical History: Reports: None Respiratory Surgical History: Reports: None GI Surgical History: Reports: Colonoscopy, EGD, Hernia, Inguinal, Other (See Below) Other GI Surgeries/Procedures: LAPAROTOMY, INCISIONAL HERNIA, PERFORATED GASTRIC ULCER WITH ANTRECTOMY Female Surgical History: Reports: None Male Surgical History: Reports: None Neurological Surgical History: Reports: None Musculoskeletal Surgical History: Reports: None Oncologic Surgical History: Reports: None Dermatological Surgical History: Reports: None - SUBSTANCE USE Tobacco Use Status *Q: Former Tobacco User Recreational Drug Use History: No - HOME MEDS Home Medications: Home Meds Pantoprazole Sodium [Protonix] 40 mg PO BID 12/02/19 [History] Losartan [Cozaar] 12.5 mg PO DAILY 06/22/20 [History] Multivitamin [Daily Deedee] 1 tab PO DAILY 06/22/20 [History] Rosuvastatin Calcium 20 mg PO DAILY 06/22/20 [History] - CURRENT (IN HOUSE) MEDS Current Meds: Current Medications Lactated Ringer's (Ringers, Lactated) 1,000 mls @ 125 mls/hr IV ASDIRECTED AFSHAN Stop: 06/23/20 23:00 Lidocaine/Sodium Bicarbonate (Buffered Lidocaine 1% In Ns 8.4%) 0.25 ml IDERM ONETIME PRN PRN Reason: Prior to IV Start Stop: 06/23/20 18:00 Sodium Chloride (Saline Flush) 10 ml FLUSH ASDIRECTED PRN PRN Reason: Keep Vein Open Stop: 06/23/20 18:00 Discontinued Medications Bupivacaine HCl (Marcaine 0.5%) Confirm Administered Dose 30 ml .ROUTE .STK-MED ONE Stop: 06/23/20 07:34 Fentanyl (Sublimaze) Confirm Administered Dose 250 mcg .ROUTE .STK-MED ONE Stop: 06/23/20 07:31 Lidocaine HCl (Xylocaine-Mpf 1%) Confirm Administered Dose 6 mls @ as directed .ROUTE .STK-MED ONE Stop: 06/23/20 07:31 Midazolam HCl (Versed 1 Mg/Ml) Confirm Administered Dose 4 mg .ROUTE .STK-MED ONE Stop: 06/23/20 07:30 Propofol (Diprivan 20 Ml) Confirm Administered Dose 200 mg .ROUTE .STK-MED ONE Stop: 06/23/20 07:32 Rocuronium [place] (Zemuron) Confirm Administered Dose 50 mg .ROUTE .STK-MED ONE Stop: 06/23/20 07:38
[2020-06-23] MEDS ORDERED: ceFAZolin 1 GM Vial ONE (08:19)
[2020-06-23] MEDS ORDERED: ePHEDrine 50 MG/ML SDV ONE (08:38)
[2020-06-23] MEDS ORDERED: HYDROmorphone 0.5 MG/0.5 ML Syringe ONE (09:03)
[2020-06-23] MEDS ORDERED: Lactated Ringers 1,000 ML ONE (09:14)
[2020-06-23] MEDS ORDERED: Ondansetron 4 MG/2 ML SDV ONE (09:20)
--- NOTE | 2020-06-23 10:05 | PCM.PRNOTE ---
- Free Text/Narrative Note: Date: 06/23/2020 Operation: laparoscopic incisional hernia repair Surgeon: Alvino Payan MD Findings: 3.5 x 4.5 cm fascial defect just superior to the umbilicus. Primary repair was performed with coated permanent mesh underaly reinforcement, mesh was circular 11.4 cm diameter. Detailed Report: The patient was taken to the operating room and placed in supine position. Timeout was performed, and general endotracheal anesthesia was initiated. Arms were tucked to the patient's side, and a Mackay catheter was placed. The abdominal hair was clipped, and abdomen was prepped and draped in usual sterile fashion. A Veress needle was placed in the left upper quadrant to establish pneumoperitoneum. Air was aspirated from the left lower quadrant with a needle and syringe, and a 5 mm bladed trocar was placed blindly at the site. A 5 mm 30 degree laparoscope was inserted into the abdomen and abdominal contents inspected. There was no injury from Veress needle placement, and the needle was removed. The fascial defect was apparent, just superior to the umbilicus, measuring approximately 3-1/2 x 4-1/2 cm. There were no significant adhesions. The Veress needle insertion site was incised to allow placement of an additional 5 mm bladed trocar. A circular 11.4 cm ventral light coated permanent mesh was selected for repair. This was prepared by placing 0 Vicryl anchoring sutures at 4 quadrants. A 12 mm bladed trocar was placed superior to the umbilicus through the fascial defect, and the mesh was introduced into the peritoneal cavity. The 12 mm port was removed, and 4 interrupted 0 Vicryl sutures were used to close the fascial defect primarily in transverse orientation. Measurements were made outside of the body for transfascial anchoring sutures, centered at the fascial defect. A laparoscopic suture passer was used to bring the suture ends out at the marked 4 quadrants through small stab incisions. Tension was placed on the transfascial stitches, and the mesh appeared to cover the defect well and lay in good position. These sutures were tied down, and the secure strap was used to fasten the periphery of the mesh to the anterior abdominal wall between the transfascial sutures. An additional 5 mm bladed trocar was placed at the right lower quadrant to allow for secure strap tacker placement at the left-sided portion of the mesh. Pneumoperitoneum was then released, and ports removed. Wounds appeared hemostatic. All incisions were closed at the level of the skin with 4-0 Vicryl suture, and dressed with Dermabond. A total of 40 cc 1% lidocaine with epinephrine was injected for local anesthetic. The patient tolerated the procedure well.
[2020-06-23] MEDS ORDERED: HYDROmorphone 0.5 MG/0.5 ML Syringe IVPUSH PRN (10:14)
[2020-06-23] MEDS ORDERED: fentaNYL 100 MCG/2 ML SDV IVPUSH PRN (10:14)
--- NOTE | 2020-06-23 10:14 | PCM.POSTAN ---
POST ANESTHESIA ASSESSMENT - MENTAL STATUS Mental Status: Somnolent - VITAL SIGNS Vital Signs: Last Vital Signs Temp 97.8 F 06/23/20 10:02 Pulse 70 06/23/20 10:02 Resp 8 L 06/23/20 10:02 BP 143/86 H 06/23/20 10:02 Pulse Ox 97 06/23/20 10:02 - RESPIRATORY Respiratory Status: Respiratory Rate WNL, Airway Patent, O2 Saturation Stable, Supplemental Oxygen - CARDIOVASCULAR CV Status: Pulse Rate WNL, Blood Pressure Stable - GASTROINTESTINAL GI Status: No Symptoms - PAIN Pain Score: 0 - POST OP HYDRATION Hydration Status: Adequate & Stable
--- NOTE | 2020-06-23 13:51 | PCM48HPAN ---
Post Anesthesia Note - EVALUATION WITHIN 48HRS OF ANESTHETIC Vital Signs in Normal Range: Yes Patient Participated in Evaluation: Yes Respiratory Function Stable: Yes Airway Patent: Yes Cardiovascular Function Stable: Yes Hydration Status Stable: Yes Pain Control Satisfactory: Yes Nausea and Vomiting Control Satisfactory: Yes Mental Status Recovered: Yes Vital Signs: Last Vital Signs Temp 98.0 F 06/23/20 12:30 Pulse 70 06/23/20 12:30 Resp 12 06/23/20 12:30 BP 124/76 06/23/20 12:30 Pulse Ox 90 L 06/23/20 12:30 - COMMENTS/OBSERVATIONS Free Text/Narrative:: Patient is able to stand and ambulate, pain is currently under control, encouraged to continue with respiratory exercises. Preparing for home discharge.
== END 2020-06-23 13:57 | disposition home or self-care (01) ==
LOC: JD.SDS 07:27
PROVIDERS: ATTEND Surgery
DX: K43.2 Incisional hernia without obstruction or gangrene (principal); I11.0 Hypertensive heart disease with heart failure; I50.9 Heart failure, unspecified; E03.9 Hypothyroidism, unspecified; E66.3 Overweight; I48.91 Unspecified atrial fibrillation; E78.00 Pure hypercholesterolemia, unspecified; Z79.899 Other long term (current) drug therapy; Z87.891 Personal history of nicotine dependence; Z68.41 Body mass index [BMI] 40.0-44.9, adult
CPT/HCPCS: 49654; C1781; J0330; J0690; J1170; J2001; J2250; J2405; J2704; J2710; J3010; J3490; J7120; 00790

== ENCOUNTER 2022-11-29 12:13 | Emergency (ER) | payer MEDICARE, OTHER ==
[2022-11-29] MEDS ORDERED: Sodium Chloride 0.9% 10 ML Syringe FLUSH PRN (12:37)
[2022-11-29 13:18] LABS: BASOPHILS ABSOLUTE AUTO 0.01 K/mm3 (0.01-0.08); BASOPHILS PERCENT AUTO 0.2 % (0.1-1.2); EOSINOPHILS ABSOLUTE AUTO 0.11 K/mm3 (0.04-0.54); EOSINOPHILS PERCENT AUTO 2.2 (0.8-7.0); HEMATOCRIT 43.4 % (40.1-51.0); HEMOGLOBIN 14.8 gm/dl (13.7-17.5); LYMPHOCYTES PERCENT AUTO 36.7 % (21.8-53.1); MEAN CORPUSCULAR HEMOGLOBIN 31.4 pg (25.7-32.2); MEAN CORPUSCULAR HGB CONC 34.1 g/dl (32.2-35.5); MEAN CORPUSCULAR VOLUME 91.9 fl (79.0-92.2); MONOCYTES ABSOLUTE AUTO 0.41 K/mm3 (0.30-0.82); MONOCYTES PERCENT AUTO 8.4 % (5.3-12.2); NEUTROPHILS ABSOLUTE AUTO 2.57 K/mm3 (1.78-5.38); NEUTROPHILS PERCENT AUTO 52.5 % (34.0-67.9); PLATELET COUNT,PLT 171 K/mm3 (163-337); RED BLOOD CELL COUNT 4.72 M/mm3 (4.63-6.08)
[2022-11-29 13:37] LABS: D-DIMER QUANTITATIVE 0.28 mg/L (0.19-0.50); INR 1.01; PROTHROMBIN TIME 10.8 SECONDS (9.7-12.0)
[2022-11-29 13:38] LABS: PTT,PARTIAL THROMBOPLSTIN TIME 28.8 SECONDS (21.7-31.4)
[2022-11-29 13:49] LABS: A/G RATIO 1.1 (1-2); ALBUMIN 3.5 g/dl (3.4-5.0); ANION GAP 9.2 (5-15); BILIRUBIN TOTAL 0.9 mg/dL (0.2-1.0); CALCIUM 8.6 mg/dL (8.5-10.1); EST CRCL DRUG DOSING (CG) 69.72 mL/min; MAGNESIUM 1.9 mg/dL (1.8-2.4); POTASSIUM,K 4.2 mEq/L (3.5-5.1); PROTEIN TOTAL,TP 6.6 g/dl (6.4-8.2)
== END 2022-11-29 14:35 | disposition home or self-care (01) ==
LOC: JD.ED 12:13
DX: R07.89 Other chest pain (principal); K21.9 Gastro-esophageal reflux disease without esophagitis; Z79.899 Other long term (current) drug therapy
CPT/HCPCS: 36415; 71045; 80053; 83735; 83880; 84484; 85025; 85379; 85610; 85730; 93005; 99285; J3490

== ENCOUNTER 2022-12-06 09:35 | Emergency (ER) | payer MEDICARE, OTHER ==
[2022-12-06] MEDS ORDERED: Morphine 4 MG/ML Syringe IVPUSH ONE (10:45)
[2022-12-06] MEDS ORDERED: Sodium Chloride 0.9% 1,000 ML IV SCH (10:45)
[2022-12-06 11:23] LABS: BASOPHILS ABSOLUTE AUTO 0.01 K/mm3 (0.01-0.08); BASOPHILS PERCENT AUTO 0.1 % (0.1-1.2); EOSINOPHILS ABSOLUTE AUTO 0.03 K/mm3 (0.04-0.54); EOSINOPHILS PERCENT AUTO 0.3 (0.8-7.0); HEMATOCRIT 43.8 % (40.1-51.0); IMMATURE GRAN ABSOLUTE AUTO 0.02 K/mm3 (0.00-0.10); IMMATURE GRAN PERCENT AUTO 0.2 % (<=1.0); LYMPHOCYTES ABSOLUTE AUTO 1.13 K/mm3 (1.32-3.57); LYMPHOCYTES PERCENT AUTO 9.6 % (21.8-53.1); MEAN CORPUSCULAR HEMOGLOBIN 31.3 pg (25.7-32.2); MEAN CORPUSCULAR HGB CONC 34.2 g/dl (32.2-35.5); MEAN CORPUSCULAR VOLUME 91.4 fl (79.0-92.2); MEAN PLATELET VOLUME 8.5 fl (9.4-12.3); MONOCYTES ABSOLUTE AUTO 0.87 K/mm3 (0.30-0.82); MONOCYTES PERCENT AUTO 7.4 % (5.3-12.2); NEUTROPHILS ABSOLUTE AUTO 9.69 K/mm3 (1.78-5.38); NEUTROPHILS PERCENT AUTO 82.4 % (34.0-67.9); PLATELET COUNT,PLT 179 K/mm3 (163-337); RED BLOOD CELL COUNT 4.79 M/mm3 (4.63-6.08); WHITE BLOOD CELL COUNT,WBC 11.75 K/mm3 (4.23-9.07)
[2022-12-06 11:37] LABS: ALBUMIN 3.6 g/dl (3.4-5.0); ANION GAP 12.1 (5-15); BILIRUBIN TOTAL 1.6 mg/dL (0.2-1.0); BUN/CREATININE RATIO 18.2 (14-18); CALCIUM 8.8 mg/dL (8.5-10.1); CREATININE 1.1 mg/dL (0.7-1.3); EST CRCL DRUG DOSING (CG) 63.38 mL/min; POTASSIUM,K 4.1 mEq/L (3.5-5.1); PROTEIN TOTAL,TP 7.1 g/dl (6.4-8.2)
[2022-12-06 12:23] LABS: APPEARANCE,URINE SLT CLOUDY (Clear); BILIRUBIN,URINE NEGATIVE (Negative); COLOR,URINE YELLOW (Yellow); GLUCOSE,URINE NEGATIVE (Negative); KETONES,URINE 1+ (Negative); LEUKOCYTE ESTERASE,URINE 1+ (Negative); NITRITE,URINE POSITIVE (Negative); OCCULT BLOOD,URINE 2+ (Negative); PH,URINE 5.5 (5.0-8.0); PROTEIN,URINE 2+ (Negative); UROBILINOGEN,URINE 0.2 (0.2-1.0)
[2022-12-06 12:59] LABS: BACTERIA,URINE MODERATE /hpf (FEW); EPITHELIAL CELLS,URINE 0-5 /hpf (0-5); MUCUS,URINE FEW /hpf (FEW); RBC,URINE 0-5 /hpf (0-5); WBC,URINE 30-40 /hpf (0-5)
[2022-12-06] MEDS ORDERED: Levofloxacin 500 MG Tab PO ONE (13:12)
== END 2022-12-06 13:56 | disposition home or self-care (01) ==
LOC: JD.ED 09:35
DX: N45.1 Epididymitis (principal); E03.9 Hypothyroidism, unspecified; K21.9 Gastro-esophageal reflux disease without esophagitis; Z87.891 Personal history of nicotine dependence; Z79.899 Other long term (current) drug therapy
CPT/HCPCS: 36415; 76870; 80053; 81001; 85025; 93975; 96374; 99284; A9270; J2270; J7030

== ENCOUNTER 2022-12-12 08:13 | Emergency (ER) | payer MEDICARE, OTHER ==
[2022-12-12] MEDS ORDERED: cefTRIAXone 2 GM in Sodium Chloride 0.9% 100 ML IV ONE (09:06)
[2022-12-12] MEDS ORDERED: HYDROmorphone 1 MG/ML Syringe IVPUSH ONE (09:07)
[2022-12-12] MEDS ORDERED: Metoclopramide 10 MG/2 ML SDV IVPUSH ONE (09:07)
[2022-12-12] MEDS ORDERED: Dexamethasone 10 MG/ML SDV IVPUSH ONE (09:08)
[2022-12-12] MEDS ORDERED: Ketorolac 30 MG/ML SDV IVPUSH SCH (09:15)
[2022-12-12 10:00] LABS: BASOPHILS ABSOLUTE AUTO 0.01 K/mm3 (0.01-0.08); BASOPHILS PERCENT AUTO 0.1 % (0.1-1.2); EOSINOPHILS ABSOLUTE AUTO 0.08 K/mm3 (0.04-0.54); EOSINOPHILS PERCENT AUTO 1.2 (0.8-7.0); HEMOGLOBIN 15.6 gm/dl (13.7-17.5); IMMATURE GRAN ABSOLUTE AUTO 0.02 K/mm3 (0.00-0.10); IMMATURE GRAN PERCENT AUTO 0.3 % (<=1.0); LYMPHOCYTES ABSOLUTE AUTO 1.35 K/mm3 (1.32-3.57); LYMPHOCYTES PERCENT AUTO 20.1 % (21.8-53.1); MEAN CORPUSCULAR HEMOGLOBIN 31.1 pg (25.7-32.2); MEAN CORPUSCULAR HGB CONC 34.7 g/dl (32.2-35.5); MEAN CORPUSCULAR VOLUME 89.6 fl (79.0-92.2); MEAN PLATELET VOLUME 8.3 fl (9.4-12.3); MONOCYTES PERCENT AUTO 8.9 % (5.3-12.2); NEUTROPHILS ABSOLUTE AUTO 4.67 K/mm3 (1.78-5.38); NEUTROPHILS PERCENT AUTO 69.4 % (34.0-67.9); PLATELET COUNT,PLT 192 K/mm3 (163-337); RED BLOOD CELL COUNT 5.02 M/mm3 (4.63-6.08); WHITE BLOOD CELL COUNT,WBC 6.73 K/mm3 (4.23-9.07)
[2022-12-12] MEDS ORDERED: Dextrose 5%-0.9% NaCl 1,000 ML IV SCH (10:15)
[2022-12-12 10:21] LABS: A/G RATIO 0.8 (1-2); ANION GAP 11.8 (5-15); BILIRUBIN TOTAL 0.4 mg/dL (0.2-1.0); BUN/CREATININE RATIO 17.3 (14-18); C-REACTIVE PROTEIN 3.6 mg/dL (<1.0); CALCIUM 8.6 mg/dL (8.5-10.1); CREATININE 1.1 mg/dL (0.7-1.3); EST CRCL DRUG DOSING (CG) 63.38 mL/min; POTASSIUM,K 3.8 mEq/L (3.5-5.1)
[2022-12-12 14:17] LABS: APPEARANCE,URINE SLT CLOUDY (Clear); BILIRUBIN,URINE 1+ (Negative); COLOR,URINE YELLOW (Yellow); GLUCOSE,URINE NEGATIVE (Negative); KETONES,URINE NEGATIVE (Negative); LEUKOCYTE ESTERASE,URINE 1+ (Negative); NITRITE,URINE NEGATIVE (Negative); OCCULT BLOOD,URINE NEGATIVE (Negative); PH,URINE 5.5 (5.0-8.0); PROTEIN,URINE 1+ (Negative)
[2022-12-12 14:25] LABS: BACTERIA,URINE FEW /hpf (FEW); MUCUS,URINE MODERATE /hpf (FEW); RBC,URINE 0-5 /hpf (0-5)
== END 2022-12-12 14:00 ==
LOC: JD.ED 08:13
DX: N45.3 Epididymo-orchitis (principal); R33.9 Retention of urine, unspecified; N41.9 Inflammatory disease of prostate, unspecified; I48.91 Unspecified atrial fibrillation; K21.9 Gastro-esophageal reflux disease without esophagitis; Z79.899 Other long term (current) drug therapy
CPT/HCPCS: 36415; 51798; 76870; 80053; 81001; 85025; 86140; 93975; 96365; 96375; 99285; J0696; J1100; J1170; J1885; J2765; J3490; J7042; 99284